=== PATIENT | male | born 1965 | race Caucasian/White ===

== ENCOUNTER 2022-02-11 22:37 | Inpatient (IN) | payer OTHER ==
[~2022-02-11] VITALS: Ht 170.2 cm; Wt 79.5 kg
[2022-02-12 01:06] VITALS: BP 142/61
[2022-02-12] MEDS ORDERED: VALS40TA2 PO (03:10)
[2022-02-12] MEDS ORDERED: METF-370 PO (03:10)
[2022-02-12] MEDS ORDERED: ALBU108A14 IN (03:10)
[2022-02-12] MEDS ORDERED: AMLO-489 PO (03:10)
[2022-02-12] MEDS ORDERED: METO-159 PO (03:10)
[2022-02-12] MEDS ORDERED: ATOR40TA52 PO (03:10)
[2022-02-12] MEDS ORDERED: CHLO25TA2 PO (03:10)
[2022-02-12] MEDS ORDERED: NITROGLYCERIN 0.4 MG SL TAB SL PRN (04:30)
[2022-02-12] MEDS ORDERED: MORPHINE SULFATE INJ 2 MG/ml SYRG IV PRN (04:30)
[2022-02-12 05:00] VITALS: BP 151/82
[2022-02-12] MEDS ORDERED: TEMAZEPAM 15 MG CAP PO PRN (05:00)
[2022-02-12] MEDS ORDERED: ACETAMINOPHEN 325 MG TAB PO PRN (05:00)
[2022-02-12] MEDS ORDERED: HYDROcodone-ACET 5/325MG TAB PO PRN (05:00)
[2022-02-12] MEDS ORDERED: ONDANSETRON HCL 4 MG/2 ML VIAL IV PRN (05:00)
[2022-02-12] MEDS ORDERED: DEXTROSE (50%) 50ML SYRG IV PRN (05:00)
[2022-02-12] MEDS: ACCU-CHEK COMFORT CURVE STRIP VI SCH ×4 (06:28→21:40)
[2022-02-12] MEDS: InsuLIN REG 1unit/0.01ml Soln (100units/ml) SC SCH ×4 (06:30→21:52)
[2022-02-12 09:19] LABS: Basophils # (auto) 0 10 ^3/uL (0-0.2); Basophils % (auto) 0.2 % (0.0-2.0); Eosinophils # (auto) 0 10 ^3/uL (0-0.8); Hematocrit 43.2 % (41.0-53.0); Hemoglobin 14.6 g/dL (13.5-17.5); Lymphocytes # (auto) 0.7 10 ^3/uL (0.4-5.4); Lymphocytes % (auto) 6.9 % (10.0-50.0); Mean Corpuscular Hemoglobin 31.7 pg (28.0-32.0); Mean Corpuscular Hgb Conc. 33.7 g/dL (32.0-36.0); Mean Corpuscular Volume 93.8 fL (80.0-100.0); Monocytes # (auto) 0.8 10 ^3/uL (0-1.3); Monocytes % (auto) 8.2 % (0.0-12.0); Neutrophils # (auto) 8.7 10 ^3/uL (1.6-8.6); Neutrophils % (auto) 84.7 % (37.0-80.0); White Blood Cell 10.3 10^3/uL (4.4-10.8)
[2022-02-12 09:23] VITALS: BP 138/84
[2022-02-12] MEDS: cefTRIAXone 1GM/50ML D5W 50 ML IV SCH (09:38)
[2022-02-12 09:40] LABS: Potassium 3.4 mmol/L (3.5-5.1)
[2022-02-12 09:41] VITALS: BP 138/84
[2022-02-12 09:48] LABS: Albumin 2.6 g/dL (3.4-5.0); BUN/Creatinine Ratio 23.4; Bilirubin, Total 0.4 mg/dL (0.2-1.0); Calcium 8.7 mg/dL (8.5-10.1); Total Protein 7.4 g/dL (6.4-8.2)
[2022-02-12 09:57] LABS: Phosphorus 2.1 mg/dL (2.5-4.90)
[2022-02-12] MEDS ORDERED: PANTOPRAZOLE 40 MG TAB PO SCH (10:00)
[2022-02-12] MEDS: AZITHROMYCIN 500MG/ 250ML 250 ML IV SCH (12:05)
[2022-02-12] MEDS: VALSARTAN 80 MG TAB PO SCH (12:06)
[2022-02-12] MEDS: amLODIPine BESYLATE 5 MG TAB PO SCH (12:06)
[2022-02-12] MEDS: METOPROLOL SUCCINATE XL 50 MG TAB PO SCH (12:06)
[2022-02-12] MEDS: ENOXAPARIN SOD 40 MG/0.4 ML SYRINGE SC SCH (12:07)
[2022-02-12 14:28] LABS: Lactic Acid w/Reflex 2.6 mmol/L (0.4-2.0)
[2022-02-12] MEDS ORDERED: SODIUM CHLORIDE 0.9% 1,000 ML IV ONE (15:15)
[2022-02-12] MEDS ORDERED: ERGOCALCIFEROL 50,000 UNIT(1.25MG) CAP PO SCH (16:00)
[2022-02-12 17:19] VITALS: BP 134/75
[2022-02-12] MEDS: IPRATROPIUM BROM 0.5 MG/2.5ML INH SOL NEB SCH (18:30)
[2022-02-12] MEDS: ALBUTEROL SULF 2.5 MG/0.5ML(0.5%) NEB SOLN NEB PRN (18:30)
[2022-02-12 20:57] LABS: Urine Bacteria NONE SEEN /hpf (None Seen); Urine Blood Negative /uL (Negative); Urine Specific Gravity 1.026 (1.001-1.035); Urine WBC 1 /hpf (0 - 3)
[2022-02-12] MEDS: ATORVASTATIN 20 MG TAB PO SCH (21:39)
[2022-02-12] MEDS: INSULIN LANTUS (GLARGINE) 1 /0.01ml (100units/ml) SC SCH (21:53)
[2022-02-12 22:00] VITALS: BP 128/89
[2022-02-13] MEDS: ALBUTEROL SULF 2.5 MG/0.5ML(0.5%) NEB SOLN NEB PRN ×2 (00:06→17:50)
[2022-02-13] MEDS: IPRATROPIUM BROM 0.5 MG/2.5ML INH SOL NEB SCH ×4 (00:06→17:50)
[2022-02-13 05:00] VITALS: BP 140/74
[2022-02-13] MEDS: ACCU-CHEK COMFORT CURVE STRIP VI SCH ×4 (05:48→21:44)
[2022-02-13 05:58] LABS: Basophils # (auto) 0.1 10 ^3/uL (0-0.2); Basophils % (auto) 0.6 % (0.0-2.0); Eosinophils # (auto) 0 10 ^3/uL (0-0.8); Eosinophils % (auto) 0.3 % (0.0-7.0); Hematocrit 41.5 % (41.0-53.0); Hemoglobin 14.1 g/dL (13.5-17.5); Lymphocytes # (auto) 1.4 10 ^3/uL (0.4-5.4); Lymphocytes % (auto) 13.8 % (10.0-50.0); Mean Corpuscular Hemoglobin 32.1 pg (28.0-32.0); Mean Corpuscular Volume 94.4 fL (80.0-100.0); Monocytes # (auto) 0.8 10 ^3/uL (0-1.3); Monocytes % (auto) 8.1 % (0.0-12.0); Neutrophils # (auto) 8.1 10 ^3/uL (1.6-8.6); Neutrophils % (auto) 77.2 % (37.0-80.0); Red Blood Cells 4.39 10^6/uL (4.5-5.90); Red Cell Distribution Width 13.7 % (11.8-14.3); White Blood Cell 10.4 10^3/uL (4.4-10.8)
[2022-02-13] MEDS: InsuLIN REG 1unit/0.01ml Soln (100units/ml) SC SCH ×4 (06:05→21:50)
[2022-02-13] MEDS: INSULIN LANTUS (GLARGINE) 1 /0.01ml (100units/ml) SC SCH ×2 (06:06→21:49)
[2022-02-13 06:19] LABS: Albumin 2.4 g/dL (3.4-5.0); Calcium 8.4 mg/dL (8.5-10.1); Potassium 3.7 mmol/L (3.5-5.1)
[2022-02-13 06:22] LABS: BUN/Creatinine Ratio 22.5; Phosphorus 2.9 mg/dL (2.5-4.90)
[2022-02-13 08:00] VITALS: BP 128/80
[2022-02-13] MEDS: cefTRIAXone 1GM/50ML D5W 50 ML IV SCH (09:00)
[2022-02-13] MEDS: VALSARTAN 80 MG TAB PO SCH (10:00)
[2022-02-13] MEDS: METOPROLOL SUCCINATE XL 50 MG TAB PO SCH (10:00)
[2022-02-13] MEDS: AZITHROMYCIN 500MG/ 250ML 250 ML IV SCH (10:18)
[2022-02-13] MEDS: amLODIPine BESYLATE 5 MG TAB PO SCH (10:20)
[2022-02-13] MEDS: ENOXAPARIN SOD 40 MG/0.4 ML SYRINGE SC SCH (10:22)
[2022-02-13 12:00] VITALS: BP 136/86
[2022-02-13 16:00] VITALS: BP 147/76
[2022-02-13] MEDS: ATORVASTATIN 20 MG TAB PO SCH (21:44)
[2022-02-13] MEDS: guaiFENesin 200 MG/10 ML UD GT PRN (22:02)
[2022-02-13 22:45] VITALS: BP 129/75
[2022-02-14 05:09] VITALS: BP 145/95
[2022-02-14] MEDS: guaiFENesin 200 MG/10 ML UD GT PRN ×2 (06:14→17:25)
[2022-02-14] MEDS: INSULIN LANTUS (GLARGINE) 1 /0.01ml (100units/ml) SC SCH ×2 (06:24→21:54)
[2022-02-14] MEDS: ACCU-CHEK COMFORT CURVE STRIP VI SCH ×4 (06:24→21:54)
[2022-02-14] MEDS: InsuLIN REG 1unit/0.01ml Soln (100units/ml) SC SCH ×4 (06:26→21:56)
[2022-02-14 09:00] VITALS: BP 135/84
[2022-02-14] MEDS: cefTRIAXone 1GM/50ML D5W 50 ML IV SCH (09:21)
[2022-02-14] MEDS: VALSARTAN 80 MG TAB PO SCH (09:26)
[2022-02-14] MEDS: amLODIPine BESYLATE 5 MG TAB PO SCH (09:29)
[2022-02-14] MEDS: ENOXAPARIN SOD 40 MG/0.4 ML SYRINGE SC SCH (09:29)
[2022-02-14] MEDS: METOPROLOL SUCCINATE XL 50 MG TAB PO SCH (09:30)
[2022-02-14] MEDS: AZITHROMYCIN 500MG/ 250ML 250 ML IV SCH (10:10)
[2022-02-14 13:00] VITALS: BP 150/67
[2022-02-14] MEDS ORDERED: EMPA1TAB3 PO (16:01)
[2022-02-14] MEDS ORDERED: AZIT250T8 PO (16:01)
[2022-02-14] MEDS ORDERED: ERGO1CAP23 PO (16:01)
[2022-02-14] MEDS: IPRATROPIUM BROM 0.5 MG/2.5ML INH SOL NEB SCH ×4 (16:50→23:54)
[2022-02-14 17:00] VITALS: BP 139/70
[2022-02-14] MEDS: ALBUTEROL SULF 2.5 MG/0.5ML(0.5%) NEB SOLN NEB PRN ×3 (18:06→23:54)
[2022-02-14 20:36] VITALS: BP 139/70
[2022-02-14] MEDS: ATORVASTATIN 20 MG TAB PO SCH (21:34)
[2022-02-14 22:00] VITALS: BP 131/76
[2022-02-14] MEDS: guaiFENesin 200 MG/10 ML UD PO PRN (22:59)
[2022-02-15 05:00] VITALS: BP 139/97
[2022-02-15] MEDS: IPRATROPIUM BROM 0.5 MG/2.5ML INH SOL NEB SCH ×2 (06:08→12:06)
[2022-02-15] MEDS: ALBUTEROL SULF 2.5 MG/0.5ML(0.5%) NEB SOLN NEB PRN ×2 (06:08→12:06)
[2022-02-15] MEDS: ACCU-CHEK COMFORT CURVE STRIP VI SCH ×2 (06:58→11:47)
[2022-02-15] MEDS: INSULIN LANTUS (GLARGINE) 1 /0.01ml (100units/ml) SC SCH (07:00)
[2022-02-15] MEDS: InsuLIN REG 1unit/0.01ml Soln (100units/ml) SC SCH ×2 (07:04→11:48)
[2022-02-15] MEDS: cefTRIAXone 1GM/50ML D5W 50 ML IV SCH (08:48)
[2022-02-15] MEDS: VALSARTAN 80 MG TAB PO SCH (10:00)
[2022-02-15] MEDS: AZITHROMYCIN 500MG/ 250ML 250 ML IV SCH (10:16)
[2022-02-15] MEDS: METOPROLOL SUCCINATE XL 50 MG TAB PO SCH (10:17)
[2022-02-15] MEDS: amLODIPine BESYLATE 5 MG TAB PO SCH (10:17)
[2022-02-15] MEDS: ENOXAPARIN SOD 40 MG/0.4 ML SYRINGE SC SCH (10:17)
[2022-02-15] MEDS: guaiFENesin 200 MG/10 ML UD PO PRN (10:18)
== END 2022-02-15 12:59 | disposition home or self-care (01) | DRG 871 ==
LOC: TELE-CENTR 23:59
PROVIDERS: ADMIT Internal Medicine; ATTEND Internal Medicine
DX: A41.9 Sepsis, unspecified organism (principal); J18.0 Bronchopneumonia, unspecified organism; E87.2 Acidosis; E11.9 Type 2 diabetes mellitus without complications; E55.9 Vitamin D deficiency, unspecified; E78.5 Hyperlipidemia, unspecified; I10 Essential (primary) hypertension; R91.1 Solitary pulmonary nodule; Z79.84 Long term (current) use of oral hypoglycemic drugs
CPT/HCPCS: 36415; 71045; 80048; 80053; 80069; 81001; 82306; 82962; 83036; 83605; 84100; 84443; 84484; 85025; 87070; 87081; 87205; 94640; G0378; J0696; J1815

== ENCOUNTER 2023-04-29 17:29 | Inpatient (IN) | payer OTHER ==
[~2023-04-29] VITALS: Ht 182.9 cm; Wt 69.0 kg
[~2023-04-29 17:29] MED LIST: ALBU108A14 IN; AMLO1TAB22 PO; ATOR40TA52 PO; AZIT-81 PO; CHLO25TA2 PO; EMPA1TAB3 PO; ERGO1CAP23 PO; METF-370 PO; METO-159 PO; VALS40TA2 PO
[2023-04-29 23:01] VITALS: BP 143/84; PULSE 115; RESP 20; TEMP 98.2; O2SAT 93
[2023-04-30] VITALS (13 sets, daily range): BP systolic 130–178; BP diastolic 73–86; PULSE 76–115; RESP 18–20; TEMP 97.5–98.4; O2SAT 93–99
[2023-04-30] MEDS ORDERED: ASPI-325 PO (01:34)
[2023-04-30] MEDS ORDERED: METO-289 PO (01:34)
[2023-04-30] MEDS ORDERED: VALS1TAB58 PO (01:34)
[2023-04-30] MEDS ORDERED: SERT-206 PO (01:34)
[2023-04-30] MEDS ORDERED: AMLO1TAB23 PO (01:34)
[2023-04-30] MEDS ORDERED: ROSU1TAB14 PO (01:34)
[2023-04-30 02:05] LABS: Basophils # (auto) 0 10 ^3/uL (0-0.2); Basophils % (auto) 0.3 % (0.0-2.0); Eosinophils # (auto) 0 10 ^3/uL (0-0.8); Hematocrit 33.9 % (41.0-53.0); Hemoglobin 11.1 g/dL (13.5-17.5); Lymphocytes # (auto) 0.9 10 ^3/uL (0.4-5.4); Lymphocytes % (auto) 7.6 % (10.0-50.0); Mean Corpuscular Hgb Conc. 32.8 g/dL (32.0-36.0); Mean Corpuscular Volume 94.5 fL (80.0-100.0); Monocytes % (auto) 8.7 % (0.0-12.0); Neutrophils # (auto) 9.7 10 ^3/uL (1.6-8.6); Neutrophils % (auto) 83.4 % (37.0-80.0); Red Blood Cells 3.59 10^6/uL (4.5-5.90); Red Cell Distribution Width 15.2 % (11.8-14.3); White Blood Cell 11.6 10^3/uL (4.4-10.8)
[2023-04-30 02:18] LABS: Albumin 3.1 g/dL (3.4-5.0); BUN/Creatinine Ratio 32.3 (10.0-20.0); Calcium 11.6 mg/dL (8.5-10.1); Potassium 3.9 mmol/L (3.5-5.1)
[2023-04-30 02:21] LABS: Bilirubin, Total 0.3 mg/dL (0.2-1.0); Total Protein 9.1 g/dL (6.4-8.2)
[2023-04-30] MEDS ORDERED: MORPHINE SULFATE INJ 2 MG/ml SYRG IV PRN (02:30)
[2023-04-30] MEDS ORDERED: DEXTROSE (50%) 50ML SYRG IV PRN (02:30)
[2023-04-30] MEDS ORDERED: NITROGLYCERIN 0.4 MG SL TAB SL PRN (02:30)
[2023-04-30] MEDS ORDERED: ONDANSETRON HCL 4 MG/2 ML VIAL IV PRN (02:30)
[2023-04-30] MEDS ORDERED: ACETAMINOPHEN 325 MG TAB PO PRN (02:30)
[2023-04-30] MEDS: MORPHINE SULFATE INJ 2 MG/ml SYRG IV PRN ×2 (05:10→10:56)
[2023-04-30] MEDS: ACCU-CHEK COMFORT CURVE STRIP VI SCH ×4 (05:54→21:25)
[2023-04-30] MEDS: InsuLIN REG 1unit/0.01ml Soln (100units/ml) SC SCH ×4 (05:57→21:27)
[2023-04-30] MEDS: METOPROLOL SUCCINATE XL 50 MG TAB PO SCH (09:09)
[2023-04-30] MEDS: PANTOPRAZOLE 40 MG TAB PO SCH (09:09)
[2023-04-30] MEDS: ASPirin 81 mg TAB PO SCH (09:10)
[2023-04-30] MEDS: amLODIPine BESYLATE 5 MG TAB PO SCH (09:10)
[2023-04-30] MEDS: SERTRALINE HCL 50 MG TAB PO SCH (09:10)
[2023-04-30] MEDS: VALSARTAN 80 MG TAB PO SCH (09:13)
[2023-04-30] MEDS ORDERED: DOXYCYCLINE 100 MG TAB/CAP PO ONE (10:30)
[2023-04-30] MEDS ORDERED: cefTRIAXone 1GM/50ML D5W 50 ML IV ONE (10:30)
[2023-04-30] MEDS ORDERED: OPTISON 3ml Vial for INJ IV ONE (10:36)
[2023-04-30 11:45] LABS: INR 1.09 (0.9-1.15); Partial Thromboplastin Time 29.8 SEC (24.5-34.5); Prothrombin Time 11.4 sec (9.3-11.8)
[2023-04-30] MEDS: ALBUTEROL SULF 2.5 MG/0.5ML(0.5%) NEB SOLN NEB PRN ×2 (12:17→16:18)
[2023-04-30] MEDS ORDERED: ZOLEDRONIC ACID 4 MG in SODIUM CHL 0.9% 100 ML IV ONE (13:30)
[2023-04-30] MEDS ORDERED: MORPHINE SULF 30 mg ER tab PO ONE (13:45)
[2023-04-30] MEDS ORDERED: HYDROcodone-ACET 5/325MG TAB PO PRN (13:45)
[2023-04-30 16:30] LABS: Urine Bacteria NONE SEEN /hpf (None Seen); Urine Blood Negative /uL (Negative); Urine Clarity Clear (Clear); Urine Color Colorless (Yellow); Urine Protein, UAD 1+ (Negative); Urine Specific Gravity 1.022 (1.001-1.035); Urine Urobilinogen Normal (Negative); Urine WBC <1 /hpf (0 - 3); Urine pH 5.5 (5.0-8.0)
[2023-04-30] MEDS: ATORVASTATIN 20 MG TAB PO SCH (21:25)
[2023-04-30] MEDS: DOXYCYCLINE 100 MG TAB/CAP PO SCH (21:25)
[2023-05-01] VITALS (13 sets, daily range): BP systolic 127–145; BP diastolic 74–80; PULSE 89–136; RESP 19–22; TEMP 98.1–98.5; O2SAT 91–99
[2023-05-01] MEDS: MORPHINE SULFATE INJ 2 MG/ml SYRG IV PRN ×2 (04:03→11:49)
[2023-05-01 05:03] LABS: Basophils # (auto) 0.1 10 ^3/uL (0-0.2); Basophils % (auto) 0.7 % (0.0-2.0); Eosinophils # (auto) 0.2 10 ^3/uL (0-0.8); Eosinophils % (auto) 1.8 % (0.0-7.0); Hematocrit 34.3 % (41.0-53.0); Hemoglobin 11.4 g/dL (13.5-17.5); Lymphocytes # (auto) 1.3 10 ^3/uL (0.4-5.4); Lymphocytes % (auto) 11.9 % (10.0-50.0); Mean Corpuscular Hemoglobin 31.6 pg (28.0-32.0); Mean Corpuscular Hgb Conc. 33.3 g/dL (32.0-36.0); Monocytes # (auto) 0.9 10 ^3/uL (0-1.3); Neutrophils # (auto) 8.7 10 ^3/uL (1.6-8.6); Neutrophils % (auto) 77.6 % (37.0-80.0); Nucleated Red Blood Cells % 0.2 %; Red Blood Cells 3.61 10^6/uL (4.5-5.90); Red Cell Distribution Width 15.1 % (11.8-14.3); White Blood Cell 11.2 10^3/uL (4.4-10.8)
[2023-05-01 05:16] LABS: Albumin 3.1 g/dL (3.4-5.0); Calcium 10.8 mg/dL (8.5-10.1); Magnesium 2.4 mg/dL (1.6-2.6); Potassium 3.6 mmol/L (3.5-5.1)
[2023-05-01 05:19] LABS: BUN/Creatinine Ratio 38.7 (10.0-20.0); Bilirubin, Total 0.3 mg/dL (0.2-1.0); Total Protein 9.1 g/dL (6.4-8.2)
[2023-05-01] MEDS: ACCU-CHEK COMFORT CURVE STRIP VI SCH ×4 (06:41→21:27)
[2023-05-01] MEDS: InsuLIN REG 1unit/0.01ml Soln (100units/ml) SC SCH ×4 (06:42→21:26)
[2023-05-01] MEDS: ALBUTEROL SULF 2.5 MG/0.5ML(0.5%) NEB SOLN NEB PRN ×4 (06:55→23:58)
[2023-05-01 07:07] LABS: Immunoglobulin A 3344 mg/dL (90-386); Immunoglobulin G, Serum 289 mg/dL (603-1613); Immunoglobulin M 15 mg/dL (20-172)
[2023-05-01 08:06] LABS: AFP Serum Tumor Marker 4.1 ng/mL (0.0-8.4)
[2023-05-01] MEDS: VALSARTAN 80 MG TAB PO SCH (08:43)
[2023-05-01] MEDS: METOPROLOL SUCCINATE XL 50 MG TAB PO SCH (08:44)
[2023-05-01] MEDS: DOXYCYCLINE 100 MG TAB/CAP PO SCH ×2 (08:44→21:21)
[2023-05-01] MEDS: amLODIPine BESYLATE 5 MG TAB PO SCH (08:45)
[2023-05-01] MEDS: SERTRALINE HCL 50 MG TAB PO SCH (08:45)
[2023-05-01] MEDS: PANTOPRAZOLE 40 MG TAB PO SCH (08:45)
[2023-05-01] MEDS: ASPirin 81 mg TAB PO SCH (08:46)
[2023-05-01] MEDS ORDERED: LIDOCAINE 2%HCL (LOCAL ANESTH.) INJ 10ml MDV ONE (09:37)
[2023-05-01] MEDS: cefTRIAXone 1GM/50ML D5W 50 ML IV SCH (10:07)
[2023-05-01 12:07] LABS: Albumin 3.3 g/dL (2.9-4.4); Alpha-1-Globulin 0.4 g/dL (0.0-0.4); Gamma Globulin 3.2 g/dL (0.4-1.8); Globulin Total 5.5 g/dL (2.2-3.9); Protein Total Serum 8.8 g/dL (6.0-8.5)
[2023-05-01] MEDS ORDERED: MIDAZOLAM HCL 2MG/2ML 2ml VIAL (1mg/ml) IV ONE (12:30)
[2023-05-01] MEDS ORDERED: fentaNYL CITRATE 100 MCG/2 ML VL IV ONE (12:30)
[2023-05-01 14:07] LABS: PSA Free 0.23 ng/mL; Prostate Specific Antigen 0.7 ng/mL (0.0-4.0)
[2023-05-01] MEDS: MORPHINE SULF 30 mg ER tab PO SCH ×2 (15:28→21:21)
[2023-05-01] MEDS: ATORVASTATIN 20 MG TAB PO SCH (21:21)
[2023-05-02] VITALS (12 sets, daily range): BP systolic 114–149; BP diastolic 67–86; PULSE 71–123; RESP 14–21; TEMP 36.6; O2SAT 92–100
[2023-05-02] MEDS: InsuLIN REG 1unit/0.01ml Soln (100units/ml) SC SCH ×4 (06:08→22:00)
[2023-05-02] MEDS: ACCU-CHEK COMFORT CURVE STRIP VI SCH ×4 (06:09→22:00)
[2023-05-02] MEDS: HYDROcodone-ACET 5/325MG TAB PO PRN ×2 (06:15→17:51)
[2023-05-02] MEDS: VALSARTAN 80 MG TAB PO SCH (10:00)
[2023-05-02] MEDS: amLODIPine BESYLATE 5 MG TAB PO SCH (10:00)
[2023-05-02] MEDS: cefTRIAXone 1GM/50ML D5W 50 ML IV SCH (10:07)
[2023-05-02] MEDS: ASPirin 81 mg TAB PO SCH (10:07)
[2023-05-02] MEDS: MORPHINE SULF 30 mg ER tab PO SCH ×2 (10:07→22:52)
[2023-05-02] MEDS: DOXYCYCLINE 100 MG TAB/CAP PO SCH ×2 (10:07→22:55)
[2023-05-02] MEDS: PANTOPRAZOLE 40 MG TAB PO SCH (10:08)
[2023-05-02] MEDS: METOPROLOL SUCCINATE XL 50 MG TAB PO SCH (10:08)
[2023-05-02] MEDS: SERTRALINE HCL 50 MG TAB PO SCH (10:08)
[2023-05-02] MEDS: ALBUTEROL SULF 2.5 MG/0.5ML(0.5%) NEB SOLN NEB PRN ×2 (10:43→22:16)
[2023-05-02] MEDS ORDERED: FUROSEMIDE 20 MG/2 ML VIAL IV ONE (11:30)
[2023-05-02 16:06] LABS: Beta-2-Microglobulin 5.5 mg/L (0.6-2.4)
[2023-05-02] MEDS: ATORVASTATIN 20 MG TAB PO SCH (22:00)
[2023-05-03] VITALS (12 sets, daily range): BP systolic 114–129; BP diastolic 65–71; PULSE 91–114; RESP 14–20; TEMP 97.9–98.5; O2SAT 91–100
[2023-05-03] MEDS: InsuLIN REG 1unit/0.01ml Soln (100units/ml) SC SCH ×4 (05:56→21:15)
[2023-05-03] MEDS: ACCU-CHEK COMFORT CURVE STRIP VI SCH ×4 (05:59→21:12)
[2023-05-03] MEDS ORDERED: ALBUTEROL SULF 2.5 MG/0.5ML(0.5%) NEB SOLN NEB PRN (09:30)
[2023-05-03] MEDS: cefTRIAXone 1GM/50ML D5W 50 ML IV SCH (09:35)
[2023-05-03] MEDS: ASPirin 81 mg TAB PO SCH (09:37)
[2023-05-03] MEDS: amLODIPine BESYLATE 5 MG TAB PO SCH (10:06)
[2023-05-03] MEDS: PANTOPRAZOLE 40 MG TAB PO SCH (10:07)
[2023-05-03] MEDS: METOPROLOL SUCCINATE XL 50 MG TAB PO SCH (10:07)
[2023-05-03] MEDS: DOXYCYCLINE 100 MG TAB/CAP PO SCH ×2 (10:07→21:11)
[2023-05-03] MEDS: MORPHINE SULF 30 mg ER tab PO SCH ×2 (10:07→21:12)
[2023-05-03] MEDS: SERTRALINE HCL 50 MG TAB PO SCH (10:08)
[2023-05-03] MEDS: VALSARTAN 80 MG TAB PO SCH (10:56)
[2023-05-03] MEDS ORDERED: ALBUTEROL MEDNEB 2.5 mg/3ml NEB NEB PRN (12:00)
[2023-05-03] MEDS: HYDROcodone-ACET 5/325MG TAB PO PRN (17:59)
[2023-05-03] MEDS: ALBUTEROL SULF 2.5 MG/0.5ML(0.5%) NEB SOLN NEB PRN (20:10)
[2023-05-03] MEDS: ATORVASTATIN 20 MG TAB PO SCH (21:12)
[2023-05-04] VITALS (11 sets, daily range): BP systolic 107–130; BP diastolic 59–71; PULSE 97–113; RESP 14–18; TEMP 98–99.7; O2SAT 90–100
[2023-05-04] MEDS: HYDROcodone-ACET 5/325MG TAB PO PRN ×3 (02:37→18:20)
[2023-05-04] MEDS: ACCU-CHEK COMFORT CURVE STRIP VI SCH ×4 (06:51→21:30)
[2023-05-04] MEDS: InsuLIN REG 1unit/0.01ml Soln (100units/ml) SC SCH ×4 (06:53→21:32)
[2023-05-04] MEDS: ALBUTEROL SULF 2.5 MG/0.5ML(0.5%) NEB SOLN NEB PRN ×2 (06:57→18:30)
[2023-05-04] MEDS ORDERED: ALBUTEROL SULF 2.5 MG/0.5ML(0.5%) NEB SOLN ONE (06:57)
[2023-05-04] MEDS: cefTRIAXone 1GM/50ML D5W 50 ML IV SCH (09:46)
[2023-05-04] MEDS: PANTOPRAZOLE 40 MG TAB PO SCH (11:15)
[2023-05-04] MEDS: SERTRALINE HCL 50 MG TAB PO SCH (11:15)
[2023-05-04] MEDS: DOXYCYCLINE 100 MG TAB/CAP PO SCH ×2 (11:15→21:27)
[2023-05-04] MEDS: METOPROLOL SUCCINATE XL 50 MG TAB PO SCH (11:15)
[2023-05-04] MEDS: ASPirin 81 mg TAB PO SCH (11:15)
[2023-05-04] MEDS: amLODIPine BESYLATE 5 MG TAB PO SCH (11:16)
[2023-05-04] MEDS: MORPHINE SULF 30 mg ER tab PO SCH ×2 (11:16→21:27)
[2023-05-04] MEDS: VALSARTAN 80 MG TAB PO SCH (11:20)
[2023-05-04] MEDS ORDERED: LACTULOSE 20Gm/30ML SOLN PO ONE (13:15)
[2023-05-04] MEDS: ATORVASTATIN 20 MG TAB PO SCH (22:00)
[2023-05-05] VITALS (10 sets, daily range): BP systolic 102–124; BP diastolic 62–69; PULSE 85–107; RESP 16–22; TEMP 97.5–98.5; O2SAT 90–100
[2023-05-05] MEDS: HYDROcodone-ACET 5/325MG TAB PO PRN ×3 (00:06→18:28)
[2023-05-05] MEDS: ACCU-CHEK COMFORT CURVE STRIP VI SCH ×4 (06:08→21:39)
[2023-05-05] MEDS: InsuLIN REG 1unit/0.01ml Soln (100units/ml) SC SCH ×4 (06:11→21:41)
[2023-05-05] MEDS: ALBUTEROL SULF 2.5 MG/0.5ML(0.5%) NEB SOLN NEB PRN ×2 (06:31→21:12)
[2023-05-05] MEDS: cefTRIAXone 1GM/50ML D5W 50 ML IV SCH (09:40)
[2023-05-05] MEDS: PANTOPRAZOLE 40 MG TAB PO SCH (09:40)
[2023-05-05] MEDS: MORPHINE SULF 30 mg ER tab PO SCH ×2 (09:41→21:39)
[2023-05-05] MEDS: ASPirin 81 mg TAB PO SCH (09:41)
[2023-05-05] MEDS: METOPROLOL SUCCINATE XL 50 MG TAB PO SCH (09:41)
[2023-05-05] MEDS: VALSARTAN 80 MG TAB PO SCH (09:41)
[2023-05-05] MEDS: SERTRALINE HCL 50 MG TAB PO SCH (09:41)
[2023-05-05] MEDS: amLODIPine BESYLATE 5 MG TAB PO SCH (09:42)
[2023-05-05] MEDS: DOXYCYCLINE 100 MG TAB/CAP PO SCH ×2 (09:42→21:39)
[2023-05-05] MEDS: ATORVASTATIN 20 MG TAB PO SCH (21:03)
[2023-05-05] MEDS: DOCUSATE SOD 100 MG CAP PO SCH (21:39)
[2023-05-06] VITALS (14 sets, daily range): BP systolic 106–121; BP diastolic 57–69; PULSE 79–107; RESP 16–21; TEMP 97.2–98.3; O2SAT 91–99
[2023-05-06] MEDS: ALBUTEROL SULF 2.5 MG/0.5ML(0.5%) NEB SOLN NEB PRN ×3 (03:44→18:28)
[2023-05-06] MEDS: HYDROcodone-ACET 5/325MG TAB PO PRN ×2 (04:47→16:04)
[2023-05-06] MEDS: ACCU-CHEK COMFORT CURVE STRIP VI SCH ×4 (06:26→22:43)
[2023-05-06] MEDS: InsuLIN REG 1unit/0.01ml Soln (100units/ml) SC SCH ×4 (06:26→22:47)
[2023-05-06] MEDS ORDERED: HYDROmorphone HCL 2 MG/ML VL/or syr IV ONE (08:00)
[2023-05-06] MEDS: MORPHINE SULF 30 mg ER tab PO SCH ×2 (10:00→22:32)
[2023-05-06] MEDS: VALSARTAN 80 MG TAB PO SCH (10:00)
[2023-05-06] MEDS: DOCUSATE SOD 100 MG CAP PO SCH ×2 (10:03→22:31)
[2023-05-06] MEDS: SERTRALINE HCL 50 MG TAB PO SCH (10:03)
[2023-05-06] MEDS: cefTRIAXone 1GM/50ML D5W 50 ML IV SCH (10:03)
[2023-05-06] MEDS: PANTOPRAZOLE 40 MG TAB PO SCH (10:03)
[2023-05-06] MEDS: DOXYCYCLINE 100 MG TAB/CAP PO SCH ×2 (10:04→22:33)
[2023-05-06] MEDS: METOPROLOL SUCCINATE XL 50 MG TAB PO SCH (10:04)
[2023-05-06] MEDS: amLODIPine BESYLATE 5 MG TAB PO SCH (10:04)
[2023-05-06] MEDS: ASPirin 81 mg TAB PO SCH (10:07)
[2023-05-06 11:55] LABS: Base Excess -4.1 mmol/L (-2.0-2.0)
[2023-05-06] MEDS ORDERED: ALBUTEROL SULF 2.5 MG/0.5ML(0.5%) NEB SOLN ONE (12:34)
[2023-05-06] MEDS: ATORVASTATIN 20 MG TAB PO SCH (22:31)
[2023-05-07] VITALS (48 sets, daily range): BP systolic 76–134; BP diastolic 39–66; PULSE 83–122; RESP 16–50; TEMP 97.9–99.6; O2SAT 86–100
[2023-05-07] MEDS: ALBUTEROL SULF 2.5 MG/0.5ML(0.5%) NEB SOLN NEB PRN (03:56)
[2023-05-07 05:15] LABS: Base Excess -13.4 mmol/L (-2.0-2.0)
[2023-05-07] MEDS: InsuLIN REG 1unit/0.01ml Soln (100units/ml) SC SCH ×4 (06:49→22:24)
[2023-05-07] MEDS: ACCU-CHEK COMFORT CURVE STRIP VI SCH ×4 (06:49→22:23)
[2023-05-07] MEDS: cefTRIAXone 1GM/50ML D5W 50 ML IV SCH (08:51)
[2023-05-07 09:01] LABS: Base Excess -11.2 mmol/L (-2.0-2.0)
[2023-05-07 09:15] LABS: Basophils # (auto) 0 10 ^3/uL (0-0.2); Basophils % (auto) 0.3 % (0.0-2.0); Eosinophils # (auto) 0.1 10 ^3/uL (0-0.8); Eosinophils % (auto) 0.5 % (0.0-7.0); Hematocrit 32.8 % (41.0-53.0); Hemoglobin 10.5 g/dL (13.5-17.5); Lymphocytes # (auto) 0.7 10 ^3/uL (0.4-5.4); Lymphocytes % (auto) 6.9 % (10.0-50.0); Mean Corpuscular Hemoglobin 30.7 pg (28.0-32.0); Mean Corpuscular Hgb Conc. 31.9 g/dL (32.0-36.0); Mean Corpuscular Volume 96.1 fL (80.0-100.0); Monocytes # (auto) 1.6 10 ^3/uL (0-1.3); Monocytes % (auto) 15.6 % (0.0-12.0); Neutrophils # (auto) 7.9 10 ^3/uL (1.6-8.6); Neutrophils % (auto) 76.7 % (37.0-80.0); Nucleated Red Blood Cells % 0.1 %; Red Blood Cells 3.41 10^6/uL (4.5-5.90); Red Cell Distribution Width 14.9 % (11.8-14.3); White Blood Cell 10.3 10^3/uL (4.4-10.8)
[2023-05-07] MEDS: SERTRALINE HCL 50 MG TAB PO SCH (10:00)
[2023-05-07] MEDS: PANTOPRAZOLE 40 MG TAB PO SCH (10:00)
[2023-05-07] MEDS: ASPirin 81 mg TAB PO SCH (10:00)
[2023-05-07] MEDS: VALSARTAN 80 MG TAB PO SCH (10:00)
[2023-05-07] MEDS: amLODIPine BESYLATE 5 MG TAB PO SCH (10:00)
[2023-05-07] MEDS: DOXYCYCLINE 100 MG TAB/CAP PO SCH ×2 (10:00→22:23)
[2023-05-07] MEDS: METOPROLOL SUCCINATE XL 50 MG TAB PO SCH (10:00)
[2023-05-07] MEDS: DOCUSATE SOD 100 MG CAP PO SCH ×2 (10:00→22:00)
[2023-05-07 12:44] LABS: BUN/Creatinine Ratio 18.9 (10.0-20.0)
[2023-05-07 12:45] LABS: Albumin 2.6 g/dL (3.4-5.0); Bilirubin, Total 0.3 mg/dL (0.2-1.0); Calcium 6.4 mg/dL (8.5-10.1); Total Protein 8.9 g/dL (6.4-8.2)
[2023-05-07 12:47] LABS: Potassium 5.7 mmol/L (3.5-5.1)
[2023-05-07 13:13] LABS: Base Excess -10.3 mmol/L (-2.0-2.0)
[2023-05-07] MEDS ORDERED: SODIUM CHLORIDE 0.9% 1,000 ML IV SCH (13:15)
[2023-05-07] MEDS: SODIUM BICARBONATE 50ML VIAL 50 ML in SOD CHL 0.45% 1,000 ML IV SCH (13:45)
[2023-05-07] MEDS ORDERED: BUMETANIDE 2.5mg/10ml (0.25 mg/ml) INJ IV ONE (13:45)
[2023-05-07 14:17] LABS: Creatinine, Urine 88 mg/dL (30.0-125.0); Sodium Urine 12 mmol/L (40-220)
[2023-05-07 14:20] LABS: Protein, Urine 241.5 mg/dL (0.0-11.9); Urine Protein/Creatinine Ratio 2.81
[2023-05-07 14:24] LABS: Urine Bacteria NONE SEEN /hpf (None Seen); Urine Blood Negative /uL (Negative); Urine Clarity Clear (Clear); Urine Color Yellow (Yellow); Urine Protein, UAD 2+ (Negative); Urine Specific Gravity 1.016 (1.001-1.035); Urine Urobilinogen Normal (Negative); Urine WBC 1 /hpf (0 - 3); Urine pH 5.5 (5.0-8.0)
[2023-05-07] MEDS: ALBUMIN 25% 100 ML IV SCH ×2 (14:35→22:22)
[2023-05-07] MEDS: NOREPINEPHRINE 8 MG/250ML KIT 250 ML IV SCH ×2 (16:00→22:25)
[2023-05-07] MEDS ORDERED: ROCURONIUM 10MG/ML 10ML VIAL IV ONE (16:00)
[2023-05-07] MEDS: fentaNYL Drip 2500mCg/250mlNS 250 ML IV SCH (16:00)
[2023-05-07] MEDS: MIDAZOLAM DRIP 50 mg/50mL 50 ML IV SCH ×2 (16:00→22:25)
[2023-05-07] MEDS ORDERED: ETOMIDATE (2MG/ML) 20ML VIAL IV ONE (16:00)
[2023-05-07 16:23] LABS: INR 1.15 (0.9-1.15)
[2023-05-07 16:42] LABS: Base Excess -9.7 mmol/L (-2.0-2.0)
[2023-05-07 19:04] LABS: Base Excess -11.8 mmol/L (-2.0-2.0)
[2023-05-07] MEDS ORDERED: SODIUM BICARBONATE 8.4 % INJ 50ML VIAL IV ONE (19:15)
[2023-05-07] MEDS: PHENYLEPHRINE INJ 80 MG in SODIUM CHL 0.9% 242 ML IV SCH (19:15)
[2023-05-07] MEDS: ATORVASTATIN 20 MG TAB PO SCH (22:23)
[2023-05-08] VITALS (103 sets, daily range): BP systolic 86–132; BP diastolic 41–73; PULSE 85–117; RESP 20–26; TEMP 99.3–100.4; O2SAT 89–100
[2023-05-08] MEDS ORDERED: SODIUM BICARBONATE 8.4 % INJ 50ML VIAL IV ONE (01:01)
[2023-05-08] MEDS: SODIUM BICARBONATE 50ML VIAL 50 ML in SOD CHL 0.45% 1,000 ML IV SCH ×4 (02:01→21:54)
[2023-05-08] MEDS ORDERED: ACETAMINOPHEN 650 mg PER 20.3 mL UD GT PRN (02:30)
[2023-05-08 04:13] LABS: Hematocrit 27.8 % (41.0-53.0); Hemoglobin 9.4 g/dL (13.5-17.5); Mean Corpuscular Hemoglobin 31.1 pg (28.0-32.0); Mean Corpuscular Hgb Conc. 33.8 g/dL (32.0-36.0); Mean Corpuscular Volume 91.9 fL (80.0-100.0); Red Blood Cells 3.02 10^6/uL (4.5-5.90); Red Cell Distribution Width 14.7 % (11.8-14.3); White Blood Cell 6.7 10^3/uL (4.4-10.8)
[2023-05-08 04:22] LABS: Basophils % (manual) 0 (0.0-2.0); Blast Cells 0; Eosinophils % (manual) 0 (0-7); Metamyelocytes % 0; Myelocytes % 0; Promyelocytes % 0; Reactive Lymphocytes 0
[2023-05-08 04:26] LABS: BUN/Creatinine Ratio 17.4 (10.0-20.0); Magnesium 2.6 mg/dL (1.6-2.6); Phosphorus 4.8 mg/dL (2.5-4.90); Potassium 3.8 mmol/L (3.5-5.1)
[2023-05-08 04:42] LABS: Calcium 5.9 mg/dL (8.5-10.1)
[2023-05-08 04:52] LABS: Band Neutrophils % (manual) 2; Lymphocytes % (manual) 12 (10.0-50.0); Monocytes % (manual) 17 (0-12); Platelet Estimate Adequate
[2023-05-08] MEDS: ALBUMIN 25% 100 ML IV SCH (06:09)
[2023-05-08] MEDS: ACCU-CHEK COMFORT CURVE STRIP VI SCH ×4 (06:12→21:55)
[2023-05-08] MEDS: InsuLIN REG 1unit/0.01ml Soln (100units/ml) SC SCH ×4 (06:12→21:58)
[2023-05-08 08:48] LABS: Base Excess -4.2 mmol/L (-2.0-2.0)
[2023-05-08] MEDS: ALBUTEROL SULF 2.5 MG/0.5ML(0.5%) NEB SOLN NEB PRN (08:51)
[2023-05-08] MEDS: ASPirin 81 mg TAB PO SCH (09:22)
[2023-05-08] MEDS: cefTRIAXone 1GM/50ML D5W 50 ML IV SCH (09:22)
[2023-05-08] MEDS: SERTRALINE HCL 50 MG TAB PO SCH (09:22)
[2023-05-08] MEDS: DOXYCYCLINE 100 MG TAB/CAP PO SCH ×2 (09:23→21:54)
[2023-05-08] MEDS: DOCUSATE SOD 100 MG CAP PO SCH (09:23)
[2023-05-08] MEDS: PANTOPRAZOLE 40 MG TAB PO SCH (10:00)
[2023-05-08] MEDS: amLODIPine BESYLATE 5 MG TAB PO SCH (10:00)
[2023-05-08] MEDS: METOPROLOL SUCCINATE XL 50 MG TAB PO SCH (10:00)
[2023-05-08] MEDS ORDERED: FUROSEMIDE 40 MG/4 ML VIAL IV ONE (11:30)
[2023-05-08] MEDS: DOPamine 1600MCG/ML D5W 250 ML IV SCH (12:55)
[2023-05-08] MEDS ORDERED: PANTOPRAZOLE 40 MG/10 ML VIAL INJ IV ONE (13:00)
[2023-05-08] MEDS: CALCIUM ACETATE 667 MG CAP NG SCH ×2 (15:30→21:54)
[2023-05-08] MEDS: fentaNYL Drip 2500mCg/250mlNS 250 ML IV SCH ×2 (16:00→21:58)
[2023-05-08] MEDS: MIDAZOLAM DRIP 50 mg/50mL 50 ML IV SCH (17:17)
[2023-05-08] MEDS: PHENYLEPHRINE INJ 80 MG in SODIUM CHL 0.9% 242 ML IV SCH (19:15)
[2023-05-08] MEDS: NOREPINEPHRINE 8 MG/250ML KIT 250 ML IV SCH (21:54)
[2023-05-08] MEDS: ATORVASTATIN 20 MG TAB PO SCH (21:55)
[2023-05-09] VITALS (105 sets, daily range): BP systolic 75–146; BP diastolic 40–71; PULSE 79–119; RESP 19–22; TEMP 98.4–99.9; O2SAT 90–100
[2023-05-09] MEDS: MIDAZOLAM DRIP 50 mg/50mL 50 ML IV SCH ×3 (00:26→21:05)
[2023-05-09] MEDS: DOCUSATE ORAL LIQUID 100 MG/10 ML UD GT SCH ×3 (00:26→21:00)
[2023-05-09 04:52] LABS: Basophils # (auto) 0.1 10 ^3/uL (0-0.2); Basophils % (auto) 0.6 % (0.0-2.0); Eosinophils # (auto) 0.3 10 ^3/uL (0-0.8); Eosinophils % (auto) 3.4 % (0.0-7.0); Hematocrit 28.2 % (41.0-53.0); Hemoglobin 9.4 g/dL (13.5-17.5); Mean Corpuscular Hemoglobin 30.9 pg (28.0-32.0); Mean Corpuscular Hgb Conc. 33.3 g/dL (32.0-36.0); Mean Corpuscular Volume 92.8 fL (80.0-100.0); Monocytes # (auto) 1.2 10 ^3/uL (0-1.3); Monocytes % (auto) 12.6 % (0.0-12.0); Neutrophils # (auto) 7.2 10 ^3/uL (1.6-8.6); Neutrophils % (auto) 73.4 % (37.0-80.0); Red Blood Cells 3.04 10^6/uL (4.5-5.90); Red Cell Distribution Width 14.8 % (11.8-14.3); White Blood Cell 9.9 10^3/uL (4.4-10.8)
[2023-05-09] MEDS: NOREPINEPHRINE 8 MG/250ML KIT 250 ML IV SCH (04:52)
[2023-05-09 05:02] LABS: Albumin 2.5 g/dL (3.4-5.0); Magnesium 2.5 mg/dL (1.6-2.6); Potassium 4.4 mmol/L (3.5-5.1)
[2023-05-09 05:05] LABS: BUN/Creatinine Ratio 15.9 (10.0-20.0); Bilirubin, Total 0.3 mg/dL (0.2-1.0); Total Protein 7.2 g/dL (6.4-8.2)
[2023-05-09 05:11] LABS: Calcium 5.4 mg/dL (8.5-10.1)
[2023-05-09] MEDS: CALCIUM ACETATE 667 MG CAP NG SCH ×3 (06:15→21:00)
[2023-05-09] MEDS: ACCU-CHEK COMFORT CURVE STRIP VI SCH ×4 (06:16→21:00)
[2023-05-09] MEDS: InsuLIN REG 1unit/0.01ml Soln (100units/ml) SC SCH ×4 (06:17→21:09)
[2023-05-09 07:48] LABS: Base Excess -5.4 mmol/L (-2.0-2.0)
[2023-05-09] MEDS: SODIUM BICARBONATE 50ML VIAL 50 ML in SOD CHL 0.45% 1,000 ML IV SCH (09:30)
[2023-05-09] MEDS: METOPROLOL SUCCINATE XL 50 MG TAB PO SCH (10:00)
[2023-05-09] MEDS: amLODIPine BESYLATE 5 MG TAB PO SCH (10:00)
[2023-05-09] MEDS: cefTRIAXone 1GM/50ML D5W 50 ML IV SCH (10:02)
[2023-05-09] MEDS: ENOXAPARIN SOD 30 MG/0.3 ML SYRINGE SC SCH (10:03)
[2023-05-09] MEDS: CALCIUM GLUC 1,000mg/50ml-NS 50 ML IV SCH ×3 (10:04→13:08)
[2023-05-09] MEDS: PANTOPRAZOLE 40 MG/10 ML VIAL INJ IV SCH (10:04)
[2023-05-09] MEDS: DOXYCYCLINE 100 MG TAB/CAP PO SCH ×2 (10:04→21:00)
[2023-05-09] MEDS: ASPirin 81 mg TAB PO SCH (10:05)
[2023-05-09] MEDS: SERTRALINE HCL 50 MG TAB PO SCH (10:05)
[2023-05-09] MEDS ORDERED: CATHFLO ACTIVASE (ALTEPLASE) 2 MG VIAL IV ONE (11:15)
[2023-05-09] MEDS: DOPamine 1600MCG/ML D5W 250 ML IV SCH (12:15)
[2023-05-09] MEDS ORDERED: SODIUM CHL 0.9% 1000 ML BAG XX ONE (12:30)
[2023-05-09] MEDS: BUMETANIDE INJECTION 12.5 MG in GIVE UN-DILUTED 0 ML IV SCH (13:09)
[2023-05-09] MEDS ORDERED: ALBUMIN 25% 100 ML IV ONE (15:15)
[2023-05-09] MEDS: ALBUTEROL SULF 2.5 MG/0.5ML(0.5%) NEB SOLN NEB PRN (18:15)
[2023-05-09] MEDS: PHENYLEPHRINE INJ 80 MG in SODIUM CHL 0.9% 242 ML IV SCH (19:15)
[2023-05-09] MEDS: ATORVASTATIN 20 MG TAB PO SCH (21:00)
[2023-05-09] MEDS ORDERED: EPOETIN ALFA-EPBX 10,000 UNIT/1ML VIAL SC ONE (21:00)
[2023-05-10] VITALS (104 sets, daily range): BP systolic 85–156; BP diastolic 40–76; PULSE 84–116; RESP 19–23; TEMP 91.8–99.7; O2SAT 88–100
[2023-05-10] MEDS: ALBUTEROL SULF 2.5 MG/0.5ML(0.5%) NEB SOLN NEB PRN (00:10)
[2023-05-10] MEDS: fentaNYL Drip 2500mCg/250mlNS 250 ML IV SCH ×3 (00:37→23:25)
[2023-05-10] MEDS: NOREPINEPHRINE 8 MG/250ML KIT 250 ML IV SCH ×2 (04:44→21:33)
[2023-05-10] MEDS: DOPamine 1600MCG/ML D5W 250 ML IV SCH (04:44)
[2023-05-10] MEDS: MIDAZOLAM DRIP 50 mg/50mL 50 ML IV SCH ×4 (04:49→21:37)
[2023-05-10] MEDS: BUMETANIDE INJECTION 12.5 MG in GIVE UN-DILUTED 0 ML IV SCH (05:05)
[2023-05-10 05:11] LABS: Basophils # (auto) 0.1 10 ^3/uL (0-0.2); Basophils % (auto) 0.7 % (0.0-2.0); Eosinophils # (auto) 0.1 10 ^3/uL (0-0.8); Eosinophils % (auto) 1.1 % (0.0-7.0); Hematocrit 28.7 % (41.0-53.0); Hemoglobin 9.6 g/dL (13.5-17.5); Lymphocytes # (auto) 0.6 10 ^3/uL (0.4-5.4); Lymphocytes % (auto) 5.7 % (10.0-50.0); Mean Corpuscular Hgb Conc. 33.6 g/dL (32.0-36.0); Mean Corpuscular Volume 92.4 fL (80.0-100.0); Monocytes # (auto) 1.1 10 ^3/uL (0-1.3); Monocytes % (auto) 10.3 % (0.0-12.0); Neutrophils % (auto) 82.2 % (37.0-80.0); Red Cell Distribution Width 14.8 % (11.8-14.3)
[2023-05-10 05:48] LABS: Potassium 4.2 mmol/L (3.5-5.1)
[2023-05-10 05:50] LABS: BUN/Creatinine Ratio 13.3 (10.0-20.0)
[2023-05-10] MEDS: CALCIUM ACETATE 667 MG CAP NG SCH ×3 (06:13→21:16)
[2023-05-10] MEDS: ACCU-CHEK COMFORT CURVE STRIP VI SCH ×4 (06:14→21:16)
[2023-05-10] MEDS: InsuLIN REG 1unit/0.01ml Soln (100units/ml) SC SCH ×4 (06:19→21:16)
[2023-05-10 06:56] LABS: Base Excess -5.9 mmol/L (-2.0-2.0)
[2023-05-10] MEDS: ENOXAPARIN SOD 30 MG/0.3 ML SYRINGE SC SCH (10:00)
[2023-05-10] MEDS: amLODIPine BESYLATE 5 MG TAB PO SCH (10:00)
[2023-05-10] MEDS: DOCUSATE ORAL LIQUID 100 MG/10 ML UD GT SCH ×2 (10:00→21:15)
[2023-05-10] MEDS: METOPROLOL SUCCINATE XL 50 MG TAB PO SCH (10:00)
[2023-05-10] MEDS: ASPirin 81 mg TAB PO SCH (10:00)
[2023-05-10] MEDS: SERTRALINE HCL 50 MG TAB PO SCH (10:00)
[2023-05-10] MEDS: PANTOPRAZOLE 40 MG/10 ML VIAL INJ IV SCH (10:08)
[2023-05-10] MEDS: cefTRIAXone 1GM/50ML D5W 50 ML IV SCH (10:08)
[2023-05-10] MEDS: DOXYCYCLINE 100 MG TAB/CAP PO SCH ×2 (10:08→21:16)
[2023-05-10] MEDS: PHENYLEPHRINE INJ 80 MG in SODIUM CHL 0.9% 242 ML IV SCH (10:09)
[2023-05-10] MEDS ORDERED: VANCOMYCIN PER PHARMACY 0 MG IV SCH (11:00)
[2023-05-10] MEDS ORDERED: VANCOMYCIN 1GM/250ML 250 ML IV ONE (11:30)
[2023-05-10] MEDS ORDERED: VANCOMYCIN 1,250 MG in D5W 5% 250 ML IV ONE (11:45)
[2023-05-10] MEDS: ATORVASTATIN 20 MG TAB PO SCH (21:16)
[2023-05-11] VITALS (107 sets, daily range): BP systolic 89–131; BP diastolic 41–69; PULSE 79–115; RESP 14–25; TEMP 96.1–99.7; O2SAT 90–100
[2023-05-11] MEDS: MIDAZOLAM DRIP 50 mg/50mL 50 ML IV SCH ×2 (04:06→12:48)
[2023-05-11 04:09] LABS: Basophils # (auto) 0.2 10 ^3/uL (0-0.2); Basophils % (auto) 1.2 % (0.0-2.0); Eosinophils # (auto) 0.4 10 ^3/uL (0-0.8); Hematocrit 27.3 % (41.0-53.0); Lymphocytes # (auto) 0.8 10 ^3/uL (0.4-5.4); Mean Corpuscular Hemoglobin 30.7 pg (28.0-32.0); Mean Corpuscular Volume 92.9 fL (80.0-100.0); Monocytes # (auto) 1.3 10 ^3/uL (0-1.3); Monocytes % (auto) 9.9 % (0.0-12.0); Neutrophils # (auto) 10.1 10 ^3/uL (1.6-8.6); Neutrophils % (auto) 79.9 % (37.0-80.0); Red Blood Cells 2.94 10^6/uL (4.5-5.90); Red Cell Distribution Width 14.7 % (11.8-14.3); White Blood Cell 12.7 10^3/uL (4.4-10.8)
[2023-05-11 04:23] LABS: Potassium 4.3 mmol/L (3.5-5.1)
[2023-05-11 04:27] LABS: BUN/Creatinine Ratio 12.6 (10.0-20.0); Calcium 6.2 mg/dL (8.5-10.1)
[2023-05-11] MEDS: CALCIUM ACETATE 667 MG CAP NG SCH ×3 (05:39→21:12)
[2023-05-11] MEDS: ACCU-CHEK COMFORT CURVE STRIP VI SCH ×4 (05:45→21:14)
[2023-05-11] MEDS: InsuLIN REG 1unit/0.01ml Soln (100units/ml) SC SCH ×4 (05:50→21:13)
[2023-05-11] MEDS ORDERED: SODIUM CHL 0.9% 1000 ML BAG XX ONE (07:00)
[2023-05-11] MEDS: cefTRIAXone 1GM/50ML D5W 50 ML IV SCH (09:01)
[2023-05-11 09:18] LABS: Base Excess -6.1 mmol/L (-2.0-2.0)
[2023-05-11] MEDS: DOCUSATE ORAL LIQUID 100 MG/10 ML UD GT SCH ×2 (10:00→21:07)
[2023-05-11] MEDS: METOPROLOL SUCCINATE XL 50 MG TAB PO SCH (10:00)
[2023-05-11] MEDS: fentaNYL Drip 2500mCg/250mlNS 250 ML IV SCH (12:40)
[2023-05-11] MEDS: PANTOPRAZOLE 40 MG/10 ML VIAL INJ IV SCH (12:41)
[2023-05-11] MEDS: ASPirin 81 mg TAB PO SCH (12:41)
[2023-05-11] MEDS: ENOXAPARIN SOD 30 MG/0.3 ML SYRINGE SC SCH (12:42)
[2023-05-11] MEDS: NOREPINEPHRINE 8 MG/250ML KIT 250 ML IV SCH (16:19)
[2023-05-11] MEDS: PHENYLEPHRINE INJ 80 MG in SODIUM CHL 0.9% 242 ML IV SCH (19:09)
[2023-05-11] MEDS ORDERED: EPOETIN ALFA-EPBX 10,000 UNIT/1ML VIAL SC ONE (21:00)
[2023-05-11] MEDS: ATORVASTATIN 20 MG TAB PO SCH (21:12)
[2023-05-11] MEDS ORDERED: LINEZOLID 600MG/300ML 300 ML IV SCH (22:00)
[2023-05-12] VITALS (109 sets, daily range): BP systolic 81–181; BP diastolic 43–85; PULSE 62–132; RESP 16–48; TEMP 97.2–99.1; O2SAT 80–100
[2023-05-12] MEDS: MIDAZOLAM DRIP 50 mg/50mL 50 ML IV SCH ×2 (00:14→18:40)
[2023-05-12 04:49] LABS: BUN/Creatinine Ratio 9.9 (10.0-20.0); Calcium 7.3 mg/dL (8.7-10.4); Magnesium 2.4 mg/dL (1.6-2.6)
[2023-05-12 05:08] LABS: Basophils # (auto) 0.1 10 ^3/uL (0-0.2); Basophils % (auto) 0.5 % (0.0-2.0); Eosinophils # (auto) 0.2 10 ^3/uL (0-0.8); Eosinophils % (auto) 2.3 % (0.0-7.0); Hematocrit 25.9 % (41.0-53.0); Hemoglobin 8.5 g/dL (13.5-17.5); Lymphocytes # (auto) 0.8 10 ^3/uL (0.4-5.4); Mean Corpuscular Hemoglobin 30.3 pg (28.0-32.0); Mean Corpuscular Hgb Conc. 32.6 g/dL (32.0-36.0); Mean Corpuscular Volume 92.8 fL (80.0-100.0); Monocytes # (auto) 1.2 10 ^3/uL (0-1.3); Monocytes % (auto) 11.1 % (0.0-12.0); Neutrophils # (auto) 8.7 10 ^3/uL (1.6-8.6); Neutrophils % (auto) 79.1 % (37.0-80.0); Nucleated Red Blood Cells % 0.4 %; Red Cell Distribution Width 14.7 % (11.8-14.3)
[2023-05-12] MEDS: CALCIUM ACETATE 667 MG CAP NG SCH ×3 (05:57→22:16)
[2023-05-12] MEDS: InsuLIN REG 1unit/0.01ml Soln (100units/ml) SC SCH ×4 (05:57→22:17)
[2023-05-12] MEDS: ACCU-CHEK COMFORT CURVE STRIP VI SCH ×4 (05:58→22:16)
[2023-05-12 06:33] LABS: Base Excess -5.5 mmol/L (-2.0-2.0)
[2023-05-12] MEDS: DOCUSATE ORAL LIQUID 100 MG/10 ML UD GT SCH ×2 (09:50→22:00)
[2023-05-12] MEDS: CEFEPIME 1GM/ 50ML 50 ML IV SCH (09:51)
[2023-05-12] MEDS: PANTOPRAZOLE 40 MG/10 ML VIAL INJ IV SCH (09:51)
[2023-05-12] MEDS: ENOXAPARIN SOD 30 MG/0.3 ML SYRINGE SC SCH (09:52)
[2023-05-12] MEDS: ASPirin 81 mg TAB PO SCH (09:52)
[2023-05-12] MEDS: METOPROLOL SUCCINATE XL 50 MG TAB PO SCH (09:52)
[2023-05-12] MEDS: LINEZOLID 600MG/300ML 300 ML IV SCH (14:09)
[2023-05-12] MEDS: fentaNYL Drip 2500mCg/250mlNS 250 ML IV SCH ×2 (16:00→18:22)
[2023-05-12] MEDS: BUMETANIDE 2.5mg/10ml (0.25 mg/ml) INJ IV SCH (17:55)
[2023-05-12] MEDS: ALBUTEROL SULF 2.5 MG/0.5ML(0.5%) NEB SOLN NEB PRN (19:05)
[2023-05-12] MEDS: PHENYLEPHRINE INJ 80 MG in SODIUM CHL 0.9% 242 ML IV SCH (19:15)
[2023-05-12] MEDS: ATORVASTATIN 20 MG TAB PO SCH (22:16)
[2023-05-13] VITALS (107 sets, daily range): BP systolic 87–184; BP diastolic 38–101; PULSE 74–124; RESP 12–36; TEMP 97.7–99.7; O2SAT 81–100
[2023-05-13] MEDS: LINEZOLID 600MG/300ML 300 ML IV SCH ×2 (01:49→14:17)
[2023-05-13] MEDS: MIDAZOLAM DRIP 50 mg/50mL 50 ML IV SCH ×3 (01:50→23:17)
[2023-05-13 04:23] LABS: Basophils # (auto) 0.1 10 ^3/uL (0-0.2); Basophils % (auto) 0.6 % (0.0-2.0); Eosinophils # (auto) 0.3 10 ^3/uL (0-0.8); Eosinophils % (auto) 2.5 % (0.0-7.0); Hematocrit 24.4 % (41.0-53.0); Hemoglobin 8.1 g/dL (13.5-17.5); Lymphocytes % (auto) 8.3 % (10.0-50.0); Mean Corpuscular Hemoglobin 30.5 pg (28.0-32.0); Mean Corpuscular Hgb Conc. 33.2 g/dL (32.0-36.0); Mean Corpuscular Volume 91.8 fL (80.0-100.0); Monocytes # (auto) 1.1 10 ^3/uL (0-1.3); Monocytes % (auto) 9.6 % (0.0-12.0); Neutrophils # (auto) 9.2 10 ^3/uL (1.6-8.6); Red Blood Cells 2.65 10^6/uL (4.5-5.90); Red Cell Distribution Width 14.7 % (11.8-14.3); White Blood Cell 11.6 10^3/uL (4.4-10.8)
[2023-05-13 04:40] LABS: Anion Gap 12.7 (5-15); Carbon Dioxide 24.3 mmol/L (20-30); Chloride 97 mmol/L (98-107); Potassium 3.8 mmol/L (3.5-5.1); Sodium 134 mmol/L (136-145)
[2023-05-13 04:41] LABS: Calcium 7.1 mg/dL (8.7-10.4)
[2023-05-13 04:46] LABS: BUN/Creatinine Ratio 9.6 (10.0-20.0); Blood Urea Nitrogen 63 mg/dL (9-23); Glucose 157 mg/dL (74-106)
[2023-05-13] MEDS: ACCU-CHEK COMFORT CURVE STRIP VI SCH ×4 (06:30→21:47)
[2023-05-13] MEDS: BUMETANIDE 2.5mg/10ml (0.25 mg/ml) INJ IV SCH ×2 (06:30→17:36)
[2023-05-13] MEDS: CALCIUM ACETATE 667 MG CAP NG SCH ×3 (06:30→21:47)
[2023-05-13] MEDS: InsuLIN REG 1unit/0.01ml Soln (100units/ml) SC SCH ×4 (06:31→21:47)
[2023-05-13] MEDS ORDERED: SODIUM CHL 0.9% 1000 ML BAG XX ONE (07:00)
[2023-05-13 07:50] LABS: Base Excess -3.7 mmol/L (-2.0-2.0)
[2023-05-13] MEDS: DOCUSATE ORAL LIQUID 100 MG/10 ML UD GT SCH ×2 (10:00→21:47)
[2023-05-13] MEDS: METOPROLOL SUCCINATE XL 50 MG TAB PO SCH (10:00)
[2023-05-13] MEDS: CEFEPIME 1GM/ 50ML 50 ML IV SCH (10:18)
[2023-05-13] MEDS: PANTOPRAZOLE 40 MG/10 ML VIAL INJ IV SCH (10:19)
[2023-05-13] MEDS: ASPirin 81 mg TAB PO SCH (10:19)
[2023-05-13] MEDS: ENOXAPARIN SOD 30 MG/0.3 ML SYRINGE SC SCH (10:19)
[2023-05-13] MEDS: fentaNYL Drip 2500mCg/250mlNS 250 ML IV SCH (14:11)
[2023-05-13] MEDS: NOREPINEPHRINE 8 MG/250ML KIT 250 ML IV SCH (16:00)
[2023-05-13] MEDS: PHENYLEPHRINE INJ 80 MG in SODIUM CHL 0.9% 242 ML IV SCH (19:15)
[2023-05-13] MEDS ORDERED: EPOETIN ALFA-EPBX 4,000 UNIT/ML VIAL SC ONE (21:00)
[2023-05-13] MEDS: ATORVASTATIN 20 MG TAB PO SCH (21:47)
[2023-05-14] VITALS (109 sets, daily range): BP systolic 103–169; BP diastolic 59–84; PULSE 85–121; RESP 18–25; TEMP 98.8–100; O2SAT 91–100
[2023-05-14] MEDS: LINEZOLID 600MG/300ML 300 ML IV SCH ×2 (01:57→13:12)
[2023-05-14] MEDS: fentaNYL Drip 2500mCg/250mlNS 250 ML IV SCH ×2 (02:28→20:42)
[2023-05-14] MEDS: BUMETANIDE 2.5mg/10ml (0.25 mg/ml) INJ IV SCH ×2 (05:50→17:58)
[2023-05-14] MEDS: MIDAZOLAM DRIP 50 mg/50mL 50 ML IV SCH ×3 (05:50→23:31)
[2023-05-14] MEDS: CALCIUM ACETATE 667 MG CAP NG SCH ×3 (05:50→21:47)
[2023-05-14] MEDS: ACCU-CHEK COMFORT CURVE STRIP VI SCH ×4 (06:27→21:46)
[2023-05-14] MEDS: InsuLIN REG 1unit/0.01ml Soln (100units/ml) SC SCH ×4 (06:28→21:47)
[2023-05-14 07:32] LABS: Base Excess 1.2 mmol/L (-2.0-2.0)
[2023-05-14 08:49] LABS: Basophils # (auto) 0.1 10 ^3/uL (0-0.2); Eosinophils # (auto) 0.3 10 ^3/uL (0-0.8); Monocytes % (auto) 9.9 % (0.0-12.0); Red Cell Distribution Width 14.8 % (11.8-14.3)
[2023-05-14 08:51] LABS: Basophils % (auto) 0.9 % (0.0-2.0); Eosinophils % (auto) 2.6 % (0.0-7.0); Hematocrit 23.9 % (41.0-53.0); Hemoglobin 7.9 g/dL (13.5-17.5); Lymphocytes % (auto) 9.1 % (10.0-50.0); Mean Corpuscular Hemoglobin 30.6 pg (28.0-32.0); Mean Corpuscular Hgb Conc. 33.2 g/dL (32.0-36.0); Mean Corpuscular Volume 92.2 fL (80.0-100.0); Neutrophils # (auto) 8.1 10 ^3/uL (1.6-8.6); Neutrophils % (auto) 77.5 % (37.0-80.0); Nucleated Red Blood Cells % 0.1 %; Red Blood Cells 2.59 10^6/uL (4.5-5.90); White Blood Cell 10.5 10^3/uL (4.4-10.8)
[2023-05-14] MEDS: ENOXAPARIN SOD 30 MG/0.3 ML SYRINGE SC SCH (09:06)
[2023-05-14] MEDS: PANTOPRAZOLE 40 MG/10 ML VIAL INJ IV SCH (09:06)
[2023-05-14] MEDS: ASPirin 81 mg TAB PO SCH (09:06)
[2023-05-14] MEDS: CEFEPIME 1GM/ 50ML 50 ML IV SCH (09:06)
[2023-05-14] MEDS: DOCUSATE ORAL LIQUID 100 MG/10 ML UD GT SCH ×2 (09:07→21:47)
[2023-05-14] MEDS: METOPROLOL SUCCINATE XL 50 MG TAB PO SCH (09:07)
[2023-05-14 09:50] LABS: Alanine Aminotransferase 19 U/L (7-40); Albumin 2.8 g/dL (3.2-4.8); Alkaline Phosphatase 79 U/L (46-116); Anion Gap 10.3 (5-15); Aspartate Aminotransferase 20 U/L (13-40); BUN/Creatinine Ratio 6.4 (10.0-20.0); Calcium 7.3 mg/dL (8.5-10.1); Carbon Dioxide 26.7 mmol/L (20-30); Chloride 97 mmol/L (98-107); Glucose 142 mg/dL (74-106); Potassium 3.4 mmol/L (3.5-5.1); Sodium 134 mmol/L (136-145)
[2023-05-14 09:51] LABS: Bilirubin, Total < 0.2 mg/dL (0.2-1.0); Total Protein 6.4 g/dL (5.7-8.2)
[2023-05-14 09:59] LABS: Blood Urea Nitrogen 32 mg/dL (9-23)
[2023-05-14] MEDS: NOREPINEPHRINE 8 MG/250ML KIT 250 ML IV SCH (16:00)
[2023-05-14] MEDS: PHENYLEPHRINE INJ 80 MG in SODIUM CHL 0.9% 242 ML IV SCH (19:15)
[2023-05-14 19:20] LABS: Rapid Influenza A Negative (Negative); Rapid Influenza B Negative (Negative)
[2023-05-14] MEDS: ATORVASTATIN 20 MG TAB PO SCH (21:47)
[2023-05-15] VITALS (104 sets, daily range): BP systolic 90–163; BP diastolic 52–85; PULSE 80–115; RESP 14–25; TEMP 97–99.3; O2SAT 93–100
[2023-05-15] MEDS: LINEZOLID 600MG/300ML 300 ML IV SCH ×2 (01:41→16:00)
[2023-05-15] MEDS: BUMETANIDE 2.5mg/10ml (0.25 mg/ml) INJ IV SCH ×2 (06:00→17:45)
[2023-05-15] MEDS: CALCIUM ACETATE 667 MG CAP NG SCH ×3 (06:00→21:50)
[2023-05-15] MEDS: MIDAZOLAM DRIP 50 mg/50mL 50 ML IV SCH (06:08)
[2023-05-15 06:17] LABS: Base Excess 0.3 mmol/L (-2.0-2.0)
[2023-05-15] MEDS: ACCU-CHEK COMFORT CURVE STRIP VI SCH ×4 (06:22→21:49)
[2023-05-15] MEDS: InsuLIN REG 1unit/0.01ml Soln (100units/ml) SC SCH ×4 (06:23→21:50)
[2023-05-15 08:40] LABS: Basophils # (auto) 0.1 10 ^3/uL (0-0.2); Basophils % (auto) 0.5 % (0.0-2.0); Eosinophils # (auto) 0.3 10 ^3/uL (0-0.8); Hematocrit 24.3 % (41.0-53.0); Lymphocytes % (auto) 10.1 % (10.0-50.0); Mean Corpuscular Hemoglobin 30.3 pg (28.0-32.0); Mean Corpuscular Hgb Conc. 32.8 g/dL (32.0-36.0); Mean Corpuscular Volume 92.5 fL (80.0-100.0); Monocytes % (auto) 9.8 % (0.0-12.0); Neutrophils # (auto) 7.8 10 ^3/uL (1.6-8.6); Neutrophils % (auto) 76.6 % (37.0-80.0); Nucleated Red Blood Cells % 0.1 %; Red Blood Cells 2.63 10^6/uL (4.5-5.90); Red Cell Distribution Width 14.9 % (11.8-14.3); White Blood Cell 10.2 10^3/uL (4.4-10.8)
[2023-05-15 09:14] LABS: Alanine Aminotransferase 18 U/L (7-40); Albumin 2.8 g/dL (3.2-4.8); Alkaline Phosphatase 84 U/L (46-116); Anion Gap 7.9 (5-15); Aspartate Aminotransferase 23 U/L (13-40); Bilirubin, Total < 0.2 mg/dL (0.2-1.0); Calcium 7.3 mg/dL (8.5-10.1); Carbon Dioxide 26.1 mmol/L (20-30); Chloride 97 mmol/L (98-107); Glucose 128 mg/dL (74-106); Potassium 3.5 mmol/L (3.5-5.1); Sodium 131 mmol/L (136-145); Total Protein 6.4 g/dL (5.7-8.2)
[2023-05-15 09:15] LABS: Blood Urea Nitrogen 43 mg/dL (9-23)
[2023-05-15] MEDS: ASPirin 81 mg TAB PO SCH (09:21)
[2023-05-15] MEDS: CEFEPIME 1GM/ 50ML 50 ML IV SCH (09:21)
[2023-05-15] MEDS: PANTOPRAZOLE 40 MG/10 ML VIAL INJ IV SCH (09:21)
[2023-05-15] MEDS: DOCUSATE ORAL LIQUID 100 MG/10 ML UD GT SCH ×2 (09:21→21:50)
[2023-05-15] MEDS: ENOXAPARIN SOD 30 MG/0.3 ML SYRINGE SC SCH (09:21)
[2023-05-15] MEDS: METOPROLOL SUCCINATE XL 50 MG TAB PO SCH (09:23)
[2023-05-15] MEDS ORDERED: HEPARIN 1,000 UNITS/ml 1ML VIAL IV ONE (15:30)
[2023-05-15] MEDS: NOREPINEPHRINE 8 MG/250ML KIT 250 ML IV SCH (16:00)
[2023-05-15] MEDS: PHENYLEPHRINE INJ 80 MG in SODIUM CHL 0.9% 242 ML IV SCH (19:15)
[2023-05-15] MEDS: ATORVASTATIN 20 MG TAB PO SCH (21:50)
[2023-05-16] VITALS (109 sets, daily range): BP systolic 75–201; BP diastolic 41–96; PULSE 83–139; RESP 21–41; TEMP 89.1–99.7; O2SAT 93–100
[2023-05-16] MEDS: PROPOFOL 100 ML IV SCH (01:45)
[2023-05-16] MEDS: MIDAZOLAM DRIP 50 mg/50mL 50 ML IV SCH ×2 (02:01→05:36)
[2023-05-16] MEDS: fentaNYL Drip 2500mCg/250mlNS 250 ML IV SCH ×2 (02:04→19:19)
[2023-05-16] MEDS: ALBUTEROL SULF 2.5 MG/0.5ML(0.5%) NEB SOLN NEB PRN ×2 (02:56→06:26)
[2023-05-16] MEDS: LINEZOLID 600MG/300ML 300 ML IV SCH ×2 (03:41→13:41)
[2023-05-16 04:57] LABS: Basophils # (auto) 0.1 10 ^3/uL (0-0.2); Eosinophils # (auto) 0.2 10 ^3/uL (0-0.8); Hematocrit 23.9 % (41.0-53.0); Hemoglobin 7.9 g/dL (13.5-17.5); Mean Corpuscular Hemoglobin 30.9 pg (28.0-32.0)
[2023-05-16 05:02] LABS: Anion Gap 13.2 (5-15); Carbon Dioxide 22.8 mmol/L (20-30); Chloride 97 mmol/L (98-107); Potassium 3.8 mmol/L (3.5-5.1); Sodium 133 mmol/L (136-145)
[2023-05-16 05:03] LABS: Basophils % (auto) 0.5 % (0.0-2.0); Eosinophils % (auto) 1.7 % (0.0-7.0); Lymphocytes # (auto) 0.9 10 ^3/uL (0.4-5.4); Lymphocytes % (auto) 9.3 % (10.0-50.0); Mean Corpuscular Hgb Conc. 33.1 g/dL (32.0-36.0); Mean Corpuscular Volume 93.2 fL (80.0-100.0); Monocytes % (auto) 10.9 % (0.0-12.0); Neutrophils # (auto) 7.4 10 ^3/uL (1.6-8.6); Neutrophils % (auto) 77.6 % (37.0-80.0); Nucleated Red Blood Cells % 0.1 %; Red Blood Cells 2.56 10^6/uL (4.5-5.90); Red Cell Distribution Width 14.6 % (11.8-14.3); White Blood Cell 9.5 10^3/uL (4.4-10.8)
[2023-05-16 05:04] LABS: Calcium 7.8 mg/dL (8.7-10.4)
[2023-05-16 05:08] LABS: Glucose 136 mg/dL (74-106)
[2023-05-16 05:09] LABS: BUN/Creatinine Ratio 5.8 (10.0-20.0)
[2023-05-16 05:29] LABS: Blood Urea Nitrogen 31 mg/dL (9-23)
[2023-05-16] MEDS: BUMETANIDE 2.5mg/10ml (0.25 mg/ml) INJ IV SCH ×2 (05:36→17:25)
[2023-05-16] MEDS: CALCIUM ACETATE 667 MG CAP NG SCH ×3 (05:37→21:46)
[2023-05-16] MEDS: InsuLIN REG 1unit/0.01ml Soln (100units/ml) SC SCH ×4 (06:31→21:54)
[2023-05-16] MEDS: ACCU-CHEK COMFORT CURVE STRIP VI SCH ×4 (06:31→21:56)
[2023-05-16 07:33] LABS: Base Excess -1.9 mmol/L (-2.0-2.0)
[2023-05-16] MEDS: DOCUSATE ORAL LIQUID 100 MG/10 ML UD GT SCH ×2 (09:48→21:46)
[2023-05-16] MEDS: CEFEPIME 1GM/ 50ML 50 ML IV SCH (09:48)
[2023-05-16] MEDS: PANTOPRAZOLE 40 MG/10 ML VIAL INJ IV SCH (09:48)
[2023-05-16] MEDS: ENOXAPARIN SOD 30 MG/0.3 ML SYRINGE SC SCH (09:49)
[2023-05-16] MEDS: ASPirin 81 mg TAB PO SCH (09:49)
[2023-05-16] MEDS: METOPROLOL SUCCINATE XL 50 MG TAB PO SCH (09:49)
[2023-05-16] MEDS ORDERED: Nepro With Carb Steady 1 Liter Bottle GT SCH (12:15)
[2023-05-16] MEDS: NOREPINEPHRINE 8 MG/250ML KIT 250 ML IV SCH (16:00)
[2023-05-16] MEDS: ATORVASTATIN 20 MG TAB PO SCH (21:46)
[2023-05-17] VITALS (105 sets, daily range): BP systolic 87–176; BP diastolic 52–87; PULSE 74–124; RESP 12–42; TEMP 87.6–99.5; O2SAT 90–100
[2023-05-17] MEDS: PROPOFOL 100 ML IV SCH (01:45)
[2023-05-17] MEDS: LINEZOLID 600MG/300ML 300 ML IV SCH ×2 (02:11→15:40)
[2023-05-17 04:11] LABS: Eosinophils # (auto) 0.2 10 ^3/uL (0-0.8); Lymphocytes # (auto) 1.1 10 ^3/uL (0.4-5.4); Monocytes # (auto) 1.1 10 ^3/uL (0-1.3); Nucleated Red Blood Cells % 0.1 %
[2023-05-17 04:15] LABS: Basophils # (auto) 0.1 10 ^3/uL (0-0.2); Basophils % (auto) 0.6 % (0.0-2.0); Eosinophils % (auto) 2.4 % (0.0-7.0); Hematocrit 23.9 % (41.0-53.0); Lymphocytes % (auto) 10.6 % (10.0-50.0); Mean Corpuscular Hemoglobin 31.3 pg (28.0-32.0); Mean Corpuscular Hgb Conc. 33.7 g/dL (32.0-36.0); Monocytes % (auto) 10.5 % (0.0-12.0); Neutrophils # (auto) 7.6 10 ^3/uL (1.6-8.6); Neutrophils % (auto) 75.9 % (37.0-80.0); Red Blood Cells 2.57 10^6/uL (4.5-5.90); Red Cell Distribution Width 14.6 % (11.8-14.3); White Blood Cell 10.1 10^3/uL (4.4-10.8)
[2023-05-17 04:37] LABS: Anion Gap 11.3 (5-15); Carbon Dioxide 23.7 mmol/L (20-30); Chloride 96 mmol/L (98-107); Potassium 3.9 mmol/L (3.5-5.1); Sodium 131 mmol/L (136-145)
[2023-05-17 04:38] LABS: Calcium 7.6 mg/dL (8.7-10.4)
[2023-05-17 04:43] LABS: BUN/Creatinine Ratio 5.7 (10.0-20.0); Blood Urea Nitrogen 37 mg/dL (9-23); Glucose 135 mg/dL (74-106)
[2023-05-17] MEDS: CALCIUM ACETATE 667 MG CAP NG SCH ×3 (06:43→21:52)
[2023-05-17] MEDS: BUMETANIDE 2.5mg/10ml (0.25 mg/ml) INJ IV SCH ×2 (06:43→17:41)
[2023-05-17] MEDS: ACCU-CHEK COMFORT CURVE STRIP VI SCH ×4 (06:43→21:53)
[2023-05-17] MEDS: InsuLIN REG 1unit/0.01ml Soln (100units/ml) SC SCH ×4 (06:49→21:55)
[2023-05-17] MEDS ORDERED: SODIUM CHL 0.9% 1000 ML BAG XX ONE (07:00)
[2023-05-17 07:44] LABS: Base Excess 0.3 mmol/L (-2.0-2.0)
[2023-05-17] MEDS ORDERED: ALBUMIN 25% 100 ML IV ONE (08:30)
[2023-05-17] MEDS ORDERED: CATHFLO ACTIVASE (ALTEPLASE) 2 MG VIAL IV ONE (09:00)
[2023-05-17] MEDS: METOPROLOL SUCCINATE XL 50 MG TAB PO SCH (10:00)
[2023-05-17] MEDS: DOCUSATE ORAL LIQUID 100 MG/10 ML UD GT SCH ×2 (10:24→21:52)
[2023-05-17] MEDS: CEFEPIME 1GM/ 50ML 50 ML IV SCH (10:25)
[2023-05-17] MEDS: ASPirin 81 mg TAB PO SCH (10:25)
[2023-05-17] MEDS: PANTOPRAZOLE 40 MG/10 ML VIAL INJ IV SCH (10:25)
[2023-05-17] MEDS: ENOXAPARIN SOD 30 MG/0.3 ML SYRINGE SC SCH (10:25)
[2023-05-17] MEDS: NOREPINEPHRINE 8 MG/250ML KIT 250 ML IV SCH (17:40)
[2023-05-17] MEDS: MIDAZOLAM DRIP 50 mg/50mL 50 ML IV SCH (17:40)
[2023-05-17] MEDS: ATORVASTATIN 20 MG TAB PO SCH (21:52)
[2023-05-17] MEDS: fentaNYL Drip 2500mCg/250mlNS 250 ML IV SCH (21:55)
[2023-05-18] VITALS (112 sets, daily range): BP systolic 84–172; BP diastolic 49–85; PULSE 74–126; RESP 15–50; TEMP 80.2–99.1; O2SAT 85–100
[2023-05-18] MEDS: PROPOFOL 100 ML IV SCH (01:45)
[2023-05-18] MEDS: LINEZOLID 600MG/300ML 300 ML IV SCH ×2 (02:02→14:40)
[2023-05-18] MEDS: MIDAZOLAM DRIP 50 mg/50mL 50 ML IV SCH (03:02)
[2023-05-18 04:03] LABS: Basophils # (auto) 0.1 10 ^3/uL (0-0.2); Eosinophils # (auto) 0.2 10 ^3/uL (0-0.8); Hematocrit 22.8 % (41.0-53.0); Lymphocytes # (auto) 1.1 10 ^3/uL (0.4-5.4); Neutrophils % (auto) 71.4 % (37.0-80.0)
[2023-05-18 04:08] LABS: Basophils % (auto) 0.8 % (0.0-2.0); Eosinophils % (auto) 2.4 % (0.0-7.0); Hemoglobin 7.6 g/dL (13.5-17.5); Lymphocytes % (auto) 14.2 % (10.0-50.0); Mean Corpuscular Hemoglobin 30.9 pg (28.0-32.0); Mean Corpuscular Hgb Conc. 33.5 g/dL (32.0-36.0); Monocytes # (auto) 0.9 10 ^3/uL (0-1.3); Monocytes % (auto) 11.2 % (0.0-12.0); Neutrophils # (auto) 5.6 10 ^3/uL (1.6-8.6); Nucleated Red Blood Cells % 0.1 %; Red Blood Cells 2.48 10^6/uL (4.5-5.90); Red Cell Distribution Width 14.2 % (11.8-14.3); White Blood Cell 7.9 10^3/uL (4.4-10.8)
[2023-05-18 04:11] LABS: Anion Gap 9.8 (5-15); Carbon Dioxide 25.2 mmol/L (20-30); Chloride 98 mmol/L (98-107); Potassium 4.1 mmol/L (3.5-5.1); Sodium 133 mmol/L (136-145)
[2023-05-18 04:12] LABS: Calcium 7.8 mg/dL (8.7-10.4)
[2023-05-18 04:17] LABS: BUN/Creatinine Ratio 5.3 (10.0-20.0); Glucose 145 mg/dL (74-106)
[2023-05-18 04:28] LABS: Blood Urea Nitrogen 26 mg/dL (9-23)
[2023-05-18] MEDS: BUMETANIDE 2.5mg/10ml (0.25 mg/ml) INJ IV SCH ×2 (06:09→18:05)
[2023-05-18] MEDS: CALCIUM ACETATE 667 MG CAP NG SCH ×3 (06:09→22:49)
[2023-05-18] MEDS: ACCU-CHEK COMFORT CURVE STRIP VI SCH ×4 (06:16→22:49)
[2023-05-18] MEDS: InsuLIN REG 1unit/0.01ml Soln (100units/ml) SC SCH ×4 (06:17→22:00)
[2023-05-18 07:19] LABS: Base Excess 0.7 mmol/L (-2.0-2.0)
[2023-05-18] MEDS: METOPROLOL SUCCINATE XL 50 MG TAB PO SCH (10:00)
[2023-05-18] MEDS: CEFEPIME 1GM/ 50ML 50 ML IV SCH (10:07)
[2023-05-18] MEDS: DOCUSATE ORAL LIQUID 100 MG/10 ML UD GT SCH ×2 (10:07→22:48)
[2023-05-18] MEDS: ASPirin 81 mg TAB PO SCH (10:08)
[2023-05-18] MEDS: PANTOPRAZOLE 40 MG/10 ML VIAL INJ IV SCH (10:08)
[2023-05-18] MEDS: ENOXAPARIN SOD 30 MG/0.3 ML SYRINGE SC SCH (10:09)
[2023-05-18] MEDS: NOREPINEPHRINE 8 MG/250ML KIT 250 ML IV SCH (16:00)
[2023-05-18] MEDS: fentaNYL Drip 2500mCg/250mlNS 250 ML IV SCH (18:05)
[2023-05-18] MEDS: ATORVASTATIN 20 MG TAB PO SCH (22:48)
[2023-05-19] VITALS (111 sets, daily range): BP systolic 96–178; BP diastolic 55–98; PULSE 79–117; RESP 10–26; TEMP 98.5–99.2; O2SAT 93–100
[2023-05-19] MEDS: MIDAZOLAM DRIP 50 mg/50mL 50 ML IV SCH ×2 (00:26→23:44)
[2023-05-19] MEDS: fentaNYL Drip 2500mCg/250mlNS 250 ML IV SCH (01:09)
[2023-05-19] MEDS: LINEZOLID 600MG/300ML 300 ML IV SCH ×2 (01:36→17:03)
[2023-05-19] MEDS: PROPOFOL 100 ML IV SCH (01:37)
[2023-05-19 04:24] LABS: Anion Gap 10.2 (5-15); Carbon Dioxide 23.8 mmol/L (20-30); Chloride 97 mmol/L (98-107); Potassium 3.9 mmol/L (3.5-5.1); Sodium 131 mmol/L (136-145)
[2023-05-19 04:25] LABS: Calcium 7.9 mg/dL (8.7-10.4)
[2023-05-19 04:30] LABS: BUN/Creatinine Ratio 5.2 (10.0-20.0); Blood Urea Nitrogen 31 mg/dL (9-23); Glucose 147 mg/dL (74-106)
[2023-05-19 04:36] LABS: Basophils # (auto) 0.1 10 ^3/uL (0-0.2); Basophils % (auto) 0.8 % (0.0-2.0); Eosinophils # (auto) 0.2 10 ^3/uL (0-0.8); Eosinophils % (auto) 1.8 % (0.0-7.0); Hematocrit 21.9 % (41.0-53.0); Hemoglobin 7.3 g/dL (13.5-17.5); Mean Corpuscular Hemoglobin 30.9 pg (28.0-32.0); Mean Corpuscular Hgb Conc. 33.5 g/dL (32.0-36.0); Mean Corpuscular Volume 92.3 fL (80.0-100.0); Monocytes # (auto) 1.1 10 ^3/uL (0-1.3); Monocytes % (auto) 11.9 % (0.0-12.0); Neutrophils # (auto) 6.8 10 ^3/uL (1.6-8.6); Neutrophils % (auto) 74.5 % (37.0-80.0); Nucleated Red Blood Cells % 0.1 %; Red Blood Cells 2.37 10^6/uL (4.5-5.90); Red Cell Distribution Width 14.8 % (11.8-14.3); White Blood Cell 9.1 10^3/uL (4.4-10.8)
[2023-05-19] MEDS: BUMETANIDE 2.5mg/10ml (0.25 mg/ml) INJ IV SCH (06:42)
[2023-05-19] MEDS: CALCIUM ACETATE 667 MG CAP NG SCH ×3 (06:43→21:56)
[2023-05-19] MEDS: ACCU-CHEK COMFORT CURVE STRIP VI SCH ×4 (06:43→21:56)
[2023-05-19] MEDS: InsuLIN REG 1unit/0.01ml Soln (100units/ml) SC SCH ×4 (06:50→22:01)
[2023-05-19] MEDS ORDERED: SODIUM CHL 0.9% 1000 ML BAG XX ONE (07:00)
[2023-05-19 07:49] LABS: Base Excess 0.4 mmol/L (-2.0-2.0)
[2023-05-19] MEDS: METOPROLOL SUCCINATE XL 50 MG TAB PO SCH (10:00)
[2023-05-19] MEDS: ALBUTEROL SULF 2.5 MG/0.5ML(0.5%) NEB SOLN NEB PRN (11:43)
[2023-05-19] MEDS ORDERED: BUMETANIDE 2.5mg/10ml (0.25 mg/ml) INJ IV ONE (12:00)
[2023-05-19] MEDS: ASPirin 81 mg TAB PO SCH (17:03)
[2023-05-19] MEDS: DOCUSATE ORAL LIQUID 100 MG/10 ML UD GT SCH ×2 (17:03→21:56)
[2023-05-19] MEDS: PANTOPRAZOLE 40 MG/10 ML VIAL INJ IV SCH (17:03)
[2023-05-19] MEDS: ENOXAPARIN SOD 30 MG/0.3 ML SYRINGE SC SCH (17:12)
[2023-05-19] MEDS: NOREPINEPHRINE 8 MG/250ML KIT 250 ML IV SCH (17:13)
[2023-05-19] MEDS: CEFEPIME 1GM/ 50ML 50 ML IV SCH (19:26)
[2023-05-19] MEDS: ATORVASTATIN 20 MG TAB PO SCH (21:56)
[2023-05-20] VITALS (105 sets, daily range): BP systolic 94–163; BP diastolic 54–105; PULSE 83–121; RESP 13–28; TEMP 97.8–98.7; O2SAT 93–100
[2023-05-20] MEDS: LINEZOLID 600MG/300ML 300 ML IV SCH ×2 (01:31→14:06)
[2023-05-20] MEDS: PROPOFOL 100 ML IV SCH (01:45)
[2023-05-20] MEDS ORDERED: DexmedeTOMIDine 4 ML IV ONE (03:28)
[2023-05-20 04:13] LABS: Basophils # (auto) 0.1 10 ^3/uL (0-0.2); Basophils % (auto) 0.7 % (0.0-2.0); Eosinophils # (auto) 0.2 10 ^3/uL (0-0.8); Hematocrit 26.2 % (41.0-53.0); Hemoglobin 8.5 g/dL (13.5-17.5); Lymphocytes # (auto) 1.7 10 ^3/uL (0.4-5.4); Lymphocytes % (auto) 14.6 % (10.0-50.0); Mean Corpuscular Hemoglobin 29.8 pg (28.0-32.0); Mean Corpuscular Hgb Conc. 32.4 g/dL (32.0-36.0); Monocytes # (auto) 1.3 10 ^3/uL (0-1.3); Monocytes % (auto) 10.8 % (0.0-12.0); Neutrophils # (auto) 8.3 10 ^3/uL (1.6-8.6); Neutrophils % (auto) 71.9 % (37.0-80.0); Nucleated Red Blood Cells % 0.1 %; Red Blood Cells 2.85 10^6/uL (4.5-5.90); Red Cell Distribution Width 14.6 % (11.8-14.3); White Blood Cell 11.6 10^3/uL (4.4-10.8)
[2023-05-20 04:25] LABS: Anion Gap 10.5 (5-15); Carbon Dioxide 23.5 mmol/L (20-30); Chloride 95 mmol/L (98-107); Potassium 4.1 mmol/L (3.5-5.1); Sodium 129 mmol/L (136-145)
[2023-05-20 04:26] LABS: Calcium 8.1 mg/dL (8.7-10.4)
[2023-05-20 04:31] LABS: BUN/Creatinine Ratio 5.4 (10.0-20.0); Blood Urea Nitrogen 37 mg/dL (9-23); Glucose 171 mg/dL (74-106)
[2023-05-20] MEDS ORDERED: ALBUMIN 25% 100 ML IV PRN (05:45)
[2023-05-20] MEDS ORDERED: ALBUMIN 25% 100 ML IV ONE (05:54)
[2023-05-20] MEDS: CALCIUM ACETATE 667 MG CAP NG SCH ×3 (06:02→21:36)
[2023-05-20] MEDS: ACCU-CHEK COMFORT CURVE STRIP VI SCH ×4 (06:02→21:37)
[2023-05-20] MEDS: InsuLIN REG 1unit/0.01ml Soln (100units/ml) SC SCH ×4 (06:03→21:44)
[2023-05-20] MEDS: ALBUTEROL SULF 2.5 MG/0.5ML(0.5%) NEB SOLN NEB PRN (06:14)
[2023-05-20 08:59] LABS: Base Excess 0.7 mmol/L (-2.0-2.0)
[2023-05-20] MEDS: PANTOPRAZOLE 40 MG/10 ML VIAL INJ IV SCH (09:30)
[2023-05-20] MEDS: CEFEPIME 1GM/ 50ML 50 ML IV SCH (09:30)
[2023-05-20] MEDS: fentaNYL Drip 2500mCg/250mlNS 250 ML IV SCH (09:32)
[2023-05-20] MEDS: METOPROLOL SUCCINATE XL 50 MG TAB PO SCH (09:33)
[2023-05-20] MEDS: ENOXAPARIN SOD 30 MG/0.3 ML SYRINGE SC SCH (09:33)
[2023-05-20] MEDS: ASPirin 81 mg TAB PO SCH (09:33)
[2023-05-20] MEDS: DOCUSATE ORAL LIQUID 100 MG/10 ML UD GT SCH ×2 (09:33→21:44)
[2023-05-20] MEDS: NOREPINEPHRINE 8 MG/250ML KIT 250 ML IV SCH (14:07)
[2023-05-20] MEDS: ATORVASTATIN 20 MG TAB PO SCH (21:36)
[2023-05-20] MEDS: ALPRAZolam 0.5 MG TAB NG SCH (21:36)
[2023-05-21] VITALS (110 sets, daily range): BP systolic 98–174; BP diastolic 58–90; PULSE 12–111; RESP 9–29; TEMP 97.5–99.8; O2SAT 94–100
[2023-05-21] MEDS: LINEZOLID 600MG/300ML 300 ML IV SCH ×2 (01:10→12:23)
[2023-05-21] MEDS: PROPOFOL 100 ML IV SCH (01:45)
[2023-05-21 04:47] LABS: Anion Gap 7.9 (5-15); Carbon Dioxide 25.1 mmol/L (20-30); Chloride 99 mmol/L (98-107); Potassium 4.2 mmol/L (3.5-5.1); Sodium 132 mmol/L (136-145)
[2023-05-21 04:53] LABS: BUN/Creatinine Ratio 4.8 (10.0-20.0); Blood Urea Nitrogen 30 mg/dL (9-23); Glucose 167 mg/dL (74-106)
[2023-05-21 04:55] LABS: Basophils # (auto) 0.1 10 ^3/uL (0-0.2); Eosinophils # (auto) 0.2 10 ^3/uL (0-0.8); Lymphocytes # (auto) 0.7 10 ^3/uL (0.4-5.4); Lymphocytes % (auto) 9.7 % (10.0-50.0); Monocytes # (auto) 0.9 10 ^3/uL (0-1.3); Red Cell Distribution Width 14.6 % (11.8-14.3)
[2023-05-21 04:59] LABS: Eosinophils % (auto) 2.1 % (0.0-7.0); Hematocrit 20.7 % (41.0-53.0); Mean Corpuscular Hgb Conc. 33.4 g/dL (32.0-36.0); Mean Corpuscular Volume 92.8 fL (80.0-100.0); Monocytes % (auto) 11.1 % (0.0-12.0); Neutrophils # (auto) 5.9 10 ^3/uL (1.6-8.6); Neutrophils % (auto) 76.1 % (37.0-80.0); Red Blood Cells 2.23 10^6/uL (4.5-5.90); White Blood Cell 7.7 10^3/uL (4.4-10.8)
[2023-05-21 05:35] LABS: Hemoglobin 6.9 g/dL (13.5-17.5)
[2023-05-21] MEDS: ACCU-CHEK COMFORT CURVE STRIP VI SCH ×4 (06:14→22:19)
[2023-05-21] MEDS: CALCIUM ACETATE 667 MG CAP NG SCH ×3 (06:14→22:21)
[2023-05-21] MEDS: InsuLIN REG 1unit/0.01ml Soln (100units/ml) SC SCH ×4 (06:23→22:00)
[2023-05-21] MEDS: DOCUSATE ORAL LIQUID 100 MG/10 ML UD GT SCH ×2 (07:30→22:22)
[2023-05-21] MEDS: METOPROLOL SUCCINATE XL 50 MG TAB PO SCH (07:30)
[2023-05-21] MEDS: ASPirin 81 mg TAB PO SCH ×2 (07:31→08:09)
[2023-05-21] MEDS: ALBUTEROL SULF 2.5 MG/0.5ML(0.5%) NEB SOLN NEB PRN ×4 (07:33→23:56)
[2023-05-21] MEDS: PANTOPRAZOLE 40 MG/10 ML VIAL INJ IV SCH (08:09)
[2023-05-21] MEDS: ALPRAZolam 0.5 MG TAB NG SCH ×2 (08:09→22:21)
[2023-05-21] MEDS: CEFEPIME 1GM/ 50ML 50 ML IV SCH (08:10)
[2023-05-21] MEDS: MIDAZOLAM DRIP 50 mg/50mL 50 ML IV SCH (10:43)
[2023-05-21] MEDS: NOREPINEPHRINE 8 MG/250ML KIT 250 ML IV SCH (10:43)
[2023-05-21] MEDS: fentaNYL Drip 2500mCg/250mlNS 250 ML IV SCH ×2 (10:44→23:08)
[2023-05-21 15:20] LABS: Base Excess -2.2 mmol/L (-2.0-2.0)
[2023-05-21] MEDS: ACETYLCYSTEINE 10 %(100MG/ML) SOL 4ML IN SCH ×2 (18:27→23:56)
[2023-05-21] MEDS: ATORVASTATIN 20 MG TAB PO SCH (22:21)
[2023-05-22] VITALS (106 sets, daily range): BP systolic 91–180; BP diastolic 43–97; PULSE 68–131; RESP 15–35; TEMP 98–99.4; O2SAT 91–100
[2023-05-22] MEDS: PROPOFOL 100 ML IV SCH (01:45)
[2023-05-22] MEDS: LINEZOLID 600MG/300ML 300 ML IV SCH ×2 (02:26→13:11)
[2023-05-22] MEDS ORDERED: BUMETANIDE 2.5mg/10ml (0.25 mg/ml) INJ IV ONE (03:00)
[2023-05-22 05:32] LABS: Alanine Aminotransferase 27 U/L (7-40); Albumin 3.4 g/dL (3.2-4.8); Alkaline Phosphatase 108 U/L (46-116); Anion Gap 8.2 (5-15); Aspartate Aminotransferase 19 U/L (13-40); BUN/Creatinine Ratio 5.1 (10.0-20.0); Basophils # (auto) 0 10 ^3/uL (0-0.2); Basophils % (auto) 0.3 % (0.0-2.0); Bilirubin, Total 0.2 mg/dL (0.2-1.0); Blood Urea Nitrogen 37 mg/dL (9-23); Carbon Dioxide 25.8 mmol/L (20-30); Chloride 98 mmol/L (98-107); Eosinophils # (auto) 0.2 10 ^3/uL (0-0.8); Glucose 178 mg/dL (74-106); Hematocrit 25.3 % (41.0-53.0); Hemoglobin 8.7 g/dL (13.5-17.5); Lymphocytes # (auto) 0.9 10 ^3/uL (0.4-5.4); Lymphocytes % (auto) 8.3 % (10.0-50.0); Mean Corpuscular Hemoglobin 31.3 pg (28.0-32.0); Mean Corpuscular Hgb Conc. 34.2 g/dL (32.0-36.0); Mean Corpuscular Volume 91.4 fL (80.0-100.0); Monocytes # (auto) 0.9 10 ^3/uL (0-1.3); Monocytes % (auto) 8.9 % (0.0-12.0); Neutrophils # (auto) 8.4 10 ^3/uL (1.6-8.6); Neutrophils % (auto) 80.5 % (37.0-80.0); Potassium 4.7 mmol/L (3.5-5.1); Red Blood Cells 2.77 10^6/uL (4.5-5.90); Red Cell Distribution Width 14.9 % (11.8-14.3); Sodium 132 mmol/L (136-145); White Blood Cell 10.5 10^3/uL (4.4-10.8)
[2023-05-22] MEDS: ACETYLCYSTEINE 10 %(100MG/ML) SOL 4ML IN SCH ×3 (05:55→18:54)
[2023-05-22] MEDS: ALBUTEROL SULF 2.5 MG/0.5ML(0.5%) NEB SOLN NEB PRN ×3 (05:55→18:54)
[2023-05-22] MEDS: ACCU-CHEK COMFORT CURVE STRIP VI SCH ×4 (06:38→21:01)
[2023-05-22] MEDS: CALCIUM ACETATE 667 MG CAP NG SCH ×3 (06:40→21:01)
[2023-05-22] MEDS: InsuLIN REG 1unit/0.01ml Soln (100units/ml) SC SCH ×4 (06:42→21:08)
[2023-05-22 07:11] LABS: Base Excess -2.5 mmol/L (-2.0-2.0)
[2023-05-22] MEDS ORDERED: SODIUM CHL 0.9% 1000 ML BAG XX ONE (07:30)
[2023-05-22] MEDS: DOCUSATE ORAL LIQUID 100 MG/10 ML UD GT SCH ×2 (08:37→21:01)
[2023-05-22] MEDS: METOPROLOL SUCCINATE XL 50 MG TAB PO SCH (08:38)
[2023-05-22] MEDS: CEFEPIME 1GM/ 50ML 50 ML IV SCH (09:10)
[2023-05-22] MEDS: PANTOPRAZOLE 40 MG/10 ML VIAL INJ IV SCH (09:10)
[2023-05-22] MEDS: ALPRAZolam 0.5 MG TAB NG SCH ×2 (09:10→21:01)
[2023-05-22 09:59] LABS: Base Excess -1.1 mmol/L (-2.0-2.0)
[2023-05-22] MEDS ORDERED: LIDOCAINE 2%HCL (LOCAL ANESTH.) INJ 20ML MDV ONE (10:09)
[2023-05-22] MEDS ORDERED: LIDOCAINE 2% JELLY 11ml (GLYDO) ONE (10:09)
[2023-05-22] MEDS ORDERED: fentaNYL CITRATE 100 MCG/2 ML VL ONE (10:10)
[2023-05-22] MEDS ORDERED: MIDAZOLAM HCL 2MG/2ML 2ml VIAL (1mg/ml) ONE (10:10)
[2023-05-22] MEDS ORDERED: EPINEPHrine HCL 1 MG/1 ML AMP ONE (10:10)
[2023-05-22] MEDS: MIDAZOLAM DRIP 50 mg/50mL 50 ML IV SCH ×3 (10:37→11:42)
[2023-05-22] MEDS: NOREPINEPHRINE 8 MG/250ML KIT 250 ML IV SCH (11:42)
[2023-05-22] MEDS ORDERED: ALBUMIN 25% 100 ML IV ONE (14:30)
[2023-05-22] MEDS: ATORVASTATIN 20 MG TAB PO SCH (21:01)
[2023-05-23] VITALS (104 sets, daily range): BP systolic 105–170; BP diastolic 50–99; PULSE 6–119; RESP 15–39; TEMP 98.8–99.3; O2SAT 89–100
[2023-05-23] MEDS: ALBUTEROL SULF 2.5 MG/0.5ML(0.5%) NEB SOLN NEB PRN ×3 (00:47→18:30)
[2023-05-23] MEDS: ACETYLCYSTEINE 10 %(100MG/ML) SOL 4ML IN SCH ×4 (00:48→18:30)
[2023-05-23] MEDS: PROPOFOL 100 ML IV SCH (01:39)
[2023-05-23] MEDS: LINEZOLID 600MG/300ML 300 ML IV SCH ×2 (01:55→14:00)
[2023-05-23] MEDS: fentaNYL Drip 2500mCg/250mlNS 250 ML IV SCH (02:05)
[2023-05-23 04:08] LABS: Basophils # (auto) 0.1 10 ^3/uL (0-0.2); Basophils % (auto) 0.7 % (0.0-2.0); Eosinophils # (auto) 0.2 10 ^3/uL (0-0.8); Eosinophils % (auto) 2.2 % (0.0-7.0); Hematocrit 24.9 % (41.0-53.0); Hemoglobin 8.3 g/dL (13.5-17.5); Lymphocytes # (auto) 0.9 10 ^3/uL (0.4-5.4); Lymphocytes % (auto) 11.9 % (10.0-50.0); Mean Corpuscular Hgb Conc. 33.3 g/dL (32.0-36.0); Monocytes # (auto) 0.9 10 ^3/uL (0-1.3); Monocytes % (auto) 11.4 % (0.0-12.0); Neutrophils # (auto) 5.6 10 ^3/uL (1.6-8.6); Neutrophils % (auto) 73.8 % (37.0-80.0); Red Blood Cells 2.68 10^6/uL (4.5-5.90); Red Cell Distribution Width 14.6 % (11.8-14.3); White Blood Cell 7.5 10^3/uL (4.4-10.8)
[2023-05-23 05:23] LABS: Chloride 100 mmol/L (98-107); Potassium 4.5 mmol/L (3.5-5.1); Sodium 135 mmol/L (136-145)
[2023-05-23 05:24] LABS: Anion Gap 11.3 (5-15); Calcium 8.3 mg/dL (8.5-10.1); Carbon Dioxide 23.7 mmol/L (20-30)
[2023-05-23 05:29] LABS: BUN/Creatinine Ratio 4.9 (10.0-20.0); Blood Urea Nitrogen 28 mg/dL (9-23); Glucose 147 mg/dL (74-106)
[2023-05-23] MEDS: CALCIUM ACETATE 667 MG CAP NG SCH ×3 (06:24→21:00)
[2023-05-23] MEDS: ACCU-CHEK COMFORT CURVE STRIP VI SCH ×4 (06:24→20:59)
[2023-05-23] MEDS: InsuLIN REG 1unit/0.01ml Soln (100units/ml) SC SCH ×4 (06:28→20:59)
[2023-05-23] MEDS: DOCUSATE ORAL LIQUID 100 MG/10 ML UD GT SCH ×2 (07:07→21:00)
[2023-05-23] MEDS: PANTOPRAZOLE 40 MG/10 ML VIAL INJ IV SCH (07:19)
[2023-05-23] MEDS: CEFEPIME 1GM/ 50ML 50 ML IV SCH (07:19)
[2023-05-23] MEDS: ALPRAZolam 0.5 MG TAB NG SCH ×2 (07:19→21:00)
[2023-05-23 09:00] LABS: Base Excess -1.4 mmol/L (-2.0-2.0)
[2023-05-23] MEDS: METOPROLOL SUCCINATE XL 50 MG TAB PO SCH (10:00)
[2023-05-23] MEDS: MIDAZOLAM DRIP 50 mg/50mL 50 ML IV SCH (10:25)
[2023-05-23] MEDS: NOREPINEPHRINE 8 MG/250ML KIT 250 ML IV SCH (10:25)
[2023-05-23] MEDS ORDERED: LABETALOL HCL 5 MG/ML 4ML SYRINGE IV PRN (11:45)
[2023-05-23] MEDS ORDERED: BUMETANIDE 2.5mg/10ml (0.25 mg/ml) INJ IV ONE (12:15)
[2023-05-23 16:09] LABS: Base Excess -0.7 mmol/L (-2.0-2.0)
[2023-05-23] MEDS: LORazepam 2MG/ML-1ML VIAL IV PRN (19:57)
[2023-05-23] MEDS: ATORVASTATIN 20 MG TAB PO SCH (21:00)
[2023-05-24] VITALS (78 sets, daily range): BP systolic 130–159; BP diastolic 69–85; PULSE 89–108; RESP 16–38; TEMP 98.2–98.7; O2SAT 94–100
[2023-05-24] MEDS: ACETYLCYSTEINE 10 %(100MG/ML) SOL 4ML IN SCH ×4 (00:04→18:55)
[2023-05-24] MEDS: ALBUTEROL SULF 2.5 MG/0.5ML(0.5%) NEB SOLN NEB PRN ×4 (00:04→18:55)
[2023-05-24] MEDS: LINEZOLID 600MG/300ML 300 ML IV SCH ×2 (01:28→14:44)
[2023-05-24 04:36] LABS: Basophils # (auto) 0.1 10 ^3/uL (0-0.2); Basophils % (auto) 0.8 % (0.0-2.0); Eosinophils # (auto) 0.1 10 ^3/uL (0-0.8); Hematocrit 26.5 % (41.0-53.0); Hemoglobin 8.8 g/dL (13.5-17.5); Lymphocytes # (auto) 0.8 10 ^3/uL (0.4-5.4); Lymphocytes % (auto) 7.8 % (10.0-50.0); Mean Corpuscular Hemoglobin 30.8 pg (28.0-32.0); Mean Corpuscular Hgb Conc. 33.3 g/dL (32.0-36.0); Mean Corpuscular Volume 92.5 fL (80.0-100.0); Monocytes # (auto) 1.1 10 ^3/uL (0-1.3); Monocytes % (auto) 10.9 % (0.0-12.0); Neutrophils # (auto) 7.8 10 ^3/uL (1.6-8.6); Neutrophils % (auto) 79.5 % (37.0-80.0); Red Blood Cells 2.86 10^6/uL (4.5-5.90); Red Cell Distribution Width 14.3 % (11.8-14.3); White Blood Cell 9.8 10^3/uL (4.4-10.8)
[2023-05-24 04:46] LABS: Calcium 8.2 mg/dL (8.7-10.4); Chloride 99 mmol/L (98-107); Potassium 4.7 mmol/L (3.5-5.1); Sodium 135 mmol/L (136-145)
[2023-05-24 04:47] LABS: Anion Gap 11.4 (5-15); Carbon Dioxide 24.6 mmol/L (20-30)
[2023-05-24 04:52] LABS: BUN/Creatinine Ratio 5.5 (10.0-20.0); Glucose 162 mg/dL (74-106)
[2023-05-24 05:20] LABS: Blood Urea Nitrogen 38 mg/dL (9-23)
[2023-05-24] MEDS: CALCIUM ACETATE 667 MG CAP NG SCH ×3 (05:58→20:13)
[2023-05-24] MEDS: ACCU-CHEK COMFORT CURVE STRIP VI SCH ×4 (06:16→20:05)
[2023-05-24] MEDS: InsuLIN REG 1unit/0.01ml Soln (100units/ml) SC SCH ×4 (06:16→20:04)
[2023-05-24] MEDS: ALPRAZolam 0.5 MG TAB NG SCH ×2 (09:58→20:13)
[2023-05-24] MEDS: PANTOPRAZOLE 40 MG/10 ML VIAL INJ IV SCH (09:58)
[2023-05-24] MEDS: CEFEPIME 1GM/ 50ML 50 ML IV SCH (09:58)
[2023-05-24] MEDS: METOPROLOL SUCCINATE XL 50 MG TAB PO SCH (09:58)
[2023-05-24] MEDS: DOCUSATE ORAL LIQUID 100 MG/10 ML UD GT SCH ×2 (09:59→20:13)
[2023-05-24] MEDS: MICAFUNGIN SODIUM 100 MG in SODIUM CHL 0.9% 100 ML IV SCH (10:39)
[2023-05-24] MEDS: NOREPINEPHRINE 8 MG/250ML KIT 250 ML IV SCH (15:46)
[2023-05-24] MEDS ORDERED: BUMETANIDE 2.5mg/10ml (0.25 mg/ml) INJ IV ONE (17:15)
[2023-05-24] MEDS: ATORVASTATIN 20 MG TAB PO SCH (20:13)
[2023-05-25] VITALS (80 sets, daily range): BP systolic 133–169; BP diastolic 74–99; PULSE 87–120; RESP 12–38; TEMP 98.3–99.1; O2SAT 86–100
[2023-05-25] MEDS: ALBUTEROL SULF 2.5 MG/0.5ML(0.5%) NEB SOLN NEB PRN ×4 (00:40→18:14)
[2023-05-25] MEDS: ACETYLCYSTEINE 10 %(100MG/ML) SOL 4ML IN SCH ×4 (00:40→18:15)
[2023-05-25] MEDS: LINEZOLID 600MG/300ML 300 ML IV SCH ×2 (02:05→13:56)
[2023-05-25] MEDS: ACCU-CHEK COMFORT CURVE STRIP VI SCH ×4 (05:28→21:39)
[2023-05-25] MEDS: HYDROcodone-ACET 5/325MG TAB PO PRN ×3 (05:31→19:34)
[2023-05-25] MEDS: CALCIUM ACETATE 667 MG CAP NG SCH ×3 (05:31→21:39)
[2023-05-25] MEDS: InsuLIN REG 1unit/0.01ml Soln (100units/ml) SC SCH ×4 (05:34→21:45)
[2023-05-25 06:01] LABS: Anion Gap 13.3 (5-15); Calcium 7.6 mg/dL (8.5-10.1); Carbon Dioxide 23.7 mmol/L (20-30); Chloride 99 mmol/L (98-107); Potassium 4.7 mmol/L (3.5-5.1); Sodium 136 mmol/L (136-145)
[2023-05-25 06:06] LABS: Glucose 167 mg/dL (74-106)
[2023-05-25 06:07] LABS: BUN/Creatinine Ratio 6.8 (10.0-20.0)
[2023-05-25 06:21] LABS: Basophils # (auto) 0.1 10 ^3/uL (0-0.2); Basophils % (auto) 0.8 % (0.0-2.0); Eosinophils # (auto) 0.2 10 ^3/uL (0-0.8); Eosinophils % (auto) 2.5 % (0.0-7.0); Hematocrit 26.6 % (41.0-53.0); Hemoglobin 8.9 g/dL (13.5-17.5); Lymphocytes # (auto) 0.7 10 ^3/uL (0.4-5.4); Lymphocytes % (auto) 8.2 % (10.0-50.0); Mean Corpuscular Hgb Conc. 33.6 g/dL (32.0-36.0); Mean Corpuscular Volume 92.1 fL (80.0-100.0); Monocytes % (auto) 11.2 % (0.0-12.0); Neutrophils # (auto) 6.8 10 ^3/uL (1.6-8.6); Neutrophils % (auto) 77.3 % (37.0-80.0); Red Blood Cells 2.89 10^6/uL (4.5-5.90); Red Cell Distribution Width 14.7 % (11.8-14.3); White Blood Cell 8.8 10^3/uL (4.4-10.8)
[2023-05-25 06:49] LABS: Blood Urea Nitrogen 51 mg/dL (9-23)
[2023-05-25] MEDS ORDERED: SODIUM CHL 0.9% 1000 ML BAG XX ONE (07:00)
[2023-05-25] MEDS: DOCUSATE ORAL LIQUID 100 MG/10 ML UD GT SCH ×2 (07:07→21:39)
[2023-05-25] MEDS: METOPROLOL SUCCINATE XL 50 MG TAB PO SCH (07:33)
[2023-05-25] MEDS: CEFEPIME 1GM/ 50ML 50 ML IV SCH (07:43)
[2023-05-25] MEDS: ALPRAZolam 0.5 MG TAB NG SCH ×2 (07:43→21:38)
[2023-05-25] MEDS: PANTOPRAZOLE 40 MG/10 ML VIAL INJ IV SCH (07:43)
[2023-05-25] MEDS: MICAFUNGIN SODIUM 100 MG in SODIUM CHL 0.9% 100 ML IV SCH (09:41)
[2023-05-25] MEDS: NOREPINEPHRINE 8 MG/250ML KIT 250 ML IV SCH (10:54)
[2023-05-25] MEDS: LORazepam 2MG/ML-1ML VIAL IV PRN (17:12)
[2023-05-25] MEDS ORDERED: BUMETANIDE 2.5mg/10ml (0.25 mg/ml) INJ IV ONE (17:30)
[2023-05-25] MEDS ORDERED: metOLazone 5 MG TAB PO ONE (17:30)
[2023-05-25] MEDS: ATORVASTATIN 20 MG TAB PO SCH (21:39)
[2023-05-26] VITALS (51 sets, daily range): BP systolic 121–159; BP diastolic 66–91; PULSE 91–134; RESP 17–33; TEMP 97.7–98.3; O2SAT 91–100
[2023-05-26] MEDS: ALBUTEROL SULF 2.5 MG/0.5ML(0.5%) NEB SOLN NEB PRN ×4 (00:23→18:24)
[2023-05-26] MEDS: ACETYLCYSTEINE 10 %(100MG/ML) SOL 4ML IN SCH ×4 (00:23→18:24)
[2023-05-26] MEDS: LINEZOLID 600MG/300ML 300 ML IV SCH ×2 (01:48→14:41)
[2023-05-26 05:51] LABS: Chloride 100 mmol/L (98-107); Potassium 4.5 mmol/L (3.5-5.1); Sodium 137 mmol/L (136-145)
[2023-05-26 05:53] LABS: Calcium 7.6 mg/dL (8.7-10.4)
[2023-05-26 05:57] LABS: Glucose 144 mg/dL (74-106)
[2023-05-26 05:58] LABS: BUN/Creatinine Ratio 7.2 (10.0-20.0); Blood Urea Nitrogen 55 mg/dL (9-23)
[2023-05-26] MEDS: CALCIUM ACETATE 667 MG CAP NG SCH ×3 (05:58→21:24)
[2023-05-26] MEDS: HYDROcodone-ACET 5/325MG TAB PO PRN (06:04)
[2023-05-26] MEDS: ACCU-CHEK COMFORT CURVE STRIP VI SCH ×4 (06:07→22:01)
[2023-05-26] MEDS: InsuLIN REG 1unit/0.01ml Soln (100units/ml) SC SCH ×4 (06:26→22:02)
[2023-05-26] MEDS ORDERED: SODIUM CHL 0.9% 1000 ML BAG XX ONE (07:00)
[2023-05-26] MEDS: DOCUSATE ORAL LIQUID 100 MG/10 ML UD GT SCH ×2 (07:13→21:27)
[2023-05-26] MEDS: MICAFUNGIN SODIUM 100 MG in SODIUM CHL 0.9% 100 ML IV SCH (08:12)
[2023-05-26] MEDS: CEFEPIME 1GM/ 50ML 50 ML IV SCH (08:12)
[2023-05-26] MEDS: PANTOPRAZOLE 40 MG/10 ML VIAL INJ IV SCH (08:14)
[2023-05-26] MEDS: METOPROLOL SUCCINATE XL 50 MG TAB PO SCH ×2 (09:25→17:26)
[2023-05-26] MEDS: ALPRAZolam 0.5 MG TAB NG SCH ×2 (09:28→21:23)
[2023-05-26 10:04] LABS: INR 1.8 (0.9-1.15); Partial Thromboplastin Time 46.4 SEC (24.5-34.5); Prothrombin Time 18.2 sec (9.3-11.8)
[2023-05-26] MEDS: DOPamine 1600MCG/ML D5W 250 ML IV SCH (10:43)
[2023-05-26] MEDS ORDERED: HYDROmorphone HCL 2 MG/ML VL/or syr ONE (13:08)
[2023-05-26] MEDS ORDERED: fentaNYL CITRATE 100 MCG/2 ML VL ONE (13:18)
[2023-05-26] MEDS ORDERED: MIDAZOLAM HCL 2MG/2ML 2ml VIAL (1mg/ml) ONE (13:19)
[2023-05-26] MEDS ORDERED: LIDOCAINE 2%HCL (LOCAL ANESTH.) INJ 20ML MDV ONE (13:21)
[2023-05-26] MEDS ORDERED: ceFAZolin 1GM VL ONE (13:37)
[2023-05-26] MEDS ORDERED: ceFAZolin 1GM/50ML 50 ML IV ONE (13:43)
[2023-05-26] MEDS ORDERED: HEPARIN 1,000 UNITS/ml 1ML VIAL ONE (13:58)
[2023-05-26] MEDS: NOREPINEPHRINE 8 MG/250ML KIT 250 ML IV SCH (14:37)
[2023-05-26] MEDS ORDERED: EPOETIN ALFA-EPBX 10,000 UNIT/1ML VIAL SC ONE (21:00)
[2023-05-26] MEDS: ATORVASTATIN 20 MG TAB PO SCH (21:24)
[2023-05-27] VITALS (55 sets, daily range): BP systolic 121–152; BP diastolic 71–93; PULSE 93–124; RESP 13–30; TEMP 97.6–98.8; O2SAT 92–100
[2023-05-27] MEDS: ACETYLCYSTEINE 10 %(100MG/ML) SOL 4ML IN SCH ×4 (00:12→18:21)
[2023-05-27] MEDS: ALBUTEROL SULF 2.5 MG/0.5ML(0.5%) NEB SOLN NEB PRN ×4 (00:12→18:21)
[2023-05-27] MEDS: LORazepam 2MG/ML-1ML VIAL IV PRN (01:30)
[2023-05-27] MEDS: LINEZOLID 600MG/300ML 300 ML IV SCH ×2 (01:31→16:30)
[2023-05-27 05:16] LABS: Alanine Aminotransferase 22 U/L (7-40); Albumin 3.8 g/dL (3.2-4.8); Alkaline Phosphatase 105 U/L (46-116); Anion Gap 12.8 (5-15); Aspartate Aminotransferase 18 U/L (13-40); BUN/Creatinine Ratio 7.9 (10.0-20.0); Blood Urea Nitrogen 60 mg/dL (9-23); Calcium 7.8 mg/dL (8.5-10.1); Carbon Dioxide 24.2 mmol/L (20-30); Chloride 98 mmol/L (98-107); Glucose 129 mg/dL (74-106); Potassium 4.6 mmol/L (3.5-5.1); Sodium 135 mmol/L (136-145)
[2023-05-27 05:17] LABS: Bilirubin, Total 0.2 mg/dL (0.2-1.0); Total Protein 7.7 g/dL (5.7-8.2)
[2023-05-27 05:19] LABS: Basophils # (auto) 0.1 10 ^3/uL (0-0.2); Basophils % (auto) 1.2 % (0.0-2.0); Eosinophils # (auto) 0.3 10 ^3/uL (0-0.8); Eosinophils % (auto) 3.9 % (0.0-7.0); Hematocrit 26.6 % (41.0-53.0); Hemoglobin 8.5 g/dL (13.5-17.5); Lymphocytes # (auto) 0.8 10 ^3/uL (0.4-5.4); Lymphocytes % (auto) 12.4 % (10.0-50.0); Mean Corpuscular Hemoglobin 29.4 pg (28.0-32.0); Mean Corpuscular Hgb Conc. 32.1 g/dL (32.0-36.0); Mean Corpuscular Volume 91.5 fL (80.0-100.0); Monocytes # (auto) 1.1 10 ^3/uL (0-1.3); Monocytes % (auto) 16.5 % (0.0-12.0); Neutrophils # (auto) 4.3 10 ^3/uL (1.6-8.6); Nucleated Red Blood Cells % 0.1 %; Red Blood Cells 2.91 10^6/uL (4.5-5.90); Red Cell Distribution Width 15.1 % (11.8-14.3); White Blood Cell 6.5 10^3/uL (4.4-10.8)
[2023-05-27] MEDS: CALCIUM ACETATE 667 MG CAP NG SCH ×4 (05:54→18:27)
[2023-05-27] MEDS: ACCU-CHEK COMFORT CURVE STRIP VI SCH ×4 (06:47→22:19)
[2023-05-27] MEDS: InsuLIN REG 1unit/0.01ml Soln (100units/ml) SC SCH ×4 (07:24→22:00)
[2023-05-27] MEDS: MORPHINE SULFATE INJ 2 MG/ml SYRG IV PRN ×3 (07:32→18:39)
[2023-05-27] MEDS: CEFEPIME 1GM/ 50ML 50 ML IV SCH (09:51)
[2023-05-27] MEDS: ALPRAZolam 0.5 MG TAB NG SCH ×2 (09:51→22:12)
[2023-05-27] MEDS: PANTOPRAZOLE 40 MG/10 ML VIAL INJ IV SCH (09:51)
[2023-05-27] MEDS: METOPROLOL SUCCINATE XL 50 MG TAB PO SCH (09:52)
[2023-05-27] MEDS: DOCUSATE ORAL LIQUID 100 MG/10 ML UD GT SCH ×2 (10:00→22:00)
[2023-05-27] MEDS: DOPamine 1600MCG/ML D5W 250 ML IV SCH (10:30)
[2023-05-27] MEDS: MICAFUNGIN SODIUM 100 MG in SODIUM CHL 0.9% 100 ML IV SCH (13:46)
[2023-05-27] MEDS: NOREPINEPHRINE 8 MG/250ML KIT 250 ML IV SCH (16:00)
[2023-05-27] MEDS: ATORVASTATIN 20 MG TAB PO SCH (22:12)
[2023-05-28] VITALS (25 sets, daily range): BP systolic 106–149; BP diastolic 65–100; PULSE 93–125; RESP 14–26; TEMP 97.6–99.1; O2SAT 92–100
[2023-05-28] MEDS: ALBUTEROL SULF 2.5 MG/0.5ML(0.5%) NEB SOLN NEB PRN ×5 (00:18→17:51)
[2023-05-28] MEDS: ACETYLCYSTEINE 10 %(100MG/ML) SOL 4ML IN SCH ×5 (00:18→17:51)
[2023-05-28] MEDS: LINEZOLID 600MG/300ML 300 ML IV SCH (02:03)
[2023-05-28] MEDS: TEMAZEPAM 15 MG CAP PO PRN ×2 (02:03→21:43)
[2023-05-28 05:24] LABS: Anion Gap 10.7 (5-15); Carbon Dioxide 24.3 mmol/L (20-30); Chloride 98 mmol/L (98-107); Potassium 4.6 mmol/L (3.5-5.1); Sodium 133 mmol/L (136-145)
[2023-05-28 05:25] LABS: Calcium 8.1 mg/dL (8.7-10.4)
[2023-05-28 05:30] LABS: BUN/Creatinine Ratio 8.3 (10.0-20.0); Blood Urea Nitrogen 66 mg/dL (9-23); Glucose 186 mg/dL (74-106)
[2023-05-28 06:17] LABS: Basophils # (auto) 0.1 10 ^3/uL (0-0.2); Basophils % (auto) 1.2 % (0.0-2.0); Eosinophils # (auto) 0.4 10 ^3/uL (0-0.8); Eosinophils % (auto) 6.1 % (0.0-7.0); Hematocrit 26.1 % (41.0-53.0); Hemoglobin 8.6 g/dL (13.5-17.5); Lymphocytes % (auto) 15.2 % (10.0-50.0); Mean Corpuscular Hemoglobin 30.6 pg (28.0-32.0); Mean Corpuscular Hgb Conc. 33.1 g/dL (32.0-36.0); Mean Corpuscular Volume 92.5 fL (80.0-100.0); Monocytes % (auto) 14.8 % (0.0-12.0); Neutrophils # (auto) 4.1 10 ^3/uL (1.6-8.6); Neutrophils % (auto) 62.7 % (37.0-80.0); Red Blood Cells 2.82 10^6/uL (4.5-5.90); Red Cell Distribution Width 14.4 % (11.8-14.3); White Blood Cell 6.5 10^3/uL (4.4-10.8)
[2023-05-28] MEDS: ACCU-CHEK COMFORT CURVE STRIP VI SCH ×4 (06:18→21:51)
[2023-05-28] MEDS: InsuLIN REG 1unit/0.01ml Soln (100units/ml) SC SCH ×4 (06:19→21:51)
[2023-05-28] MEDS ORDERED: SODIUM CHL 0.9% 1000 ML BAG XX ONE (07:00)
[2023-05-28] MEDS: CALCIUM ACETATE 667 MG CAP NG SCH (09:11)
[2023-05-28] MEDS: MICAFUNGIN SODIUM 100 MG in SODIUM CHL 0.9% 100 ML IV SCH (09:56)
[2023-05-28] MEDS: DOCUSATE ORAL LIQUID 100 MG/10 ML UD GT SCH ×2 (10:00→21:47)
[2023-05-28] MEDS: METOPROLOL SUCCINATE XL 50 MG TAB PO SCH ×2 (10:00→23:17)
[2023-05-28] MEDS: ALPRAZolam 0.5 MG TAB NG SCH ×2 (10:01→21:43)
[2023-05-28] MEDS: PANTOPRAZOLE 40 MG/10 ML VIAL INJ IV SCH (10:07)
[2023-05-28] MEDS: CEFEPIME 1GM/ 50ML 50 ML IV SCH (11:07)
[2023-05-28] MEDS ORDERED: METOPROLOL TARTRATE 1MG/1ML-5ML VIAL IV ONE (16:45)
[2023-05-28] MEDS: CALCIUM ACETATE 667 MG CAP PO SCH (18:09)
[2023-05-28] MEDS ORDERED: EPOETIN ALFA-EPBX 10,000 UNIT/1ML VIAL SC ONE (21:00)
[2023-05-28] MEDS: MORPHINE SULFATE INJ 2 MG/ml SYRG IV PRN (21:42)
[2023-05-28] MEDS: ATORVASTATIN 20 MG TAB PO SCH (21:43)
[2023-05-28] MEDS ORDERED: PRAZOSIN HCL 1 MG CAP PO ONE (22:00)
[2023-05-28] MEDS ORDERED: METOPROLOL SUCCINATE XL 50 MG TAB PO ONE (23:13)
[2023-05-29] VITALS (15 sets, daily range): BP systolic 110–148; BP diastolic 62–93; PULSE 94–126; RESP 16–20; TEMP 98.2–98.7; O2SAT 94–100
[2023-05-29 06:09] LABS: Basophils # (auto) 0.1 10 ^3/uL (0-0.2); Basophils % (auto) 1.9 % (0.0-2.0); Eosinophils # (auto) 0.3 10 ^3/uL (0-0.8); Eosinophils % (auto) 4.9 % (0.0-7.0); Hematocrit 29.4 % (41.0-53.0); Hemoglobin 9.3 g/dL (13.5-17.5); Lymphocytes # (auto) 0.9 10 ^3/uL (0.4-5.4); Lymphocytes % (auto) 17.5 % (10.0-50.0); Mean Corpuscular Hemoglobin 29.3 pg (28.0-32.0); Mean Corpuscular Hgb Conc. 31.7 g/dL (32.0-36.0); Mean Corpuscular Volume 92.2 fL (80.0-100.0); Monocytes # (auto) 0.9 10 ^3/uL (0-1.3); Monocytes % (auto) 16.4 % (0.0-12.0); Neutrophils # (auto) 3.2 10 ^3/uL (1.6-8.6); Neutrophils % (auto) 59.3 % (37.0-80.0); Nucleated Red Blood Cells % 0.1 %; Red Blood Cells 3.19 10^6/uL (4.5-5.90); Red Cell Distribution Width 14.9 % (11.8-14.3); White Blood Cell 5.4 10^3/uL (4.4-10.8)
[2023-05-29 06:20] LABS: Anion Gap 13.3 (5-15); Carbon Dioxide 23.7 mmol/L (20-30); Chloride 98 mmol/L (98-107); Potassium 4.3 mmol/L (3.5-5.1); Sodium 135 mmol/L (136-145)
[2023-05-29] MEDS: InsuLIN REG 1unit/0.01ml Soln (100units/ml) SC SCH ×2 (06:21→11:11)
[2023-05-29 06:22] LABS: Calcium 8.9 mg/dL (8.5-10.1)
[2023-05-29] MEDS: ACCU-CHEK COMFORT CURVE STRIP VI SCH ×2 (06:24→11:11)
[2023-05-29 06:27] LABS: BUN/Creatinine Ratio 7.1 (10.0-20.0); Glucose 150 mg/dL (74-106)
[2023-05-29 06:33] LABS: Blood Urea Nitrogen 42 mg/dL (9-23)
[2023-05-29] MEDS: ALBUTEROL SULF 2.5 MG/0.5ML(0.5%) NEB SOLN NEB PRN (07:18)
[2023-05-29] MEDS: ACETYLCYSTEINE 10 %(100MG/ML) SOL 4ML IN SCH ×2 (07:19)
[2023-05-29] MEDS: ALPRAZolam 0.5 MG TAB NG SCH (08:49)
[2023-05-29] MEDS: DOCUSATE ORAL LIQUID 100 MG/10 ML UD GT SCH (08:49)
[2023-05-29] MEDS: PANTOPRAZOLE 40 MG/10 ML VIAL INJ IV SCH (08:49)
[2023-05-29] MEDS: METOPROLOL SUCCINATE XL 50 MG TAB PO SCH (08:50)
[2023-05-29] MEDS: CALCIUM ACETATE 667 MG CAP PO SCH ×3 (08:50→18:25)
[2023-05-29] MEDS: HYDROcodone-ACET 5/325MG TAB PO PRN ×2 (08:50→23:05)
[2023-05-29] MEDS: DOCUSATE SOD 100 MG CAP PO SCH (23:05)
[2023-05-29] MEDS: ATORVASTATIN 20 MG TAB PO SCH (23:05)
[2023-05-29] MEDS: TEMAZEPAM 15 MG CAP PO PRN (23:06)
[2023-05-30] VITALS (12 sets, daily range): BP systolic 88–149; BP diastolic 55–93; PULSE 68–107; RESP 18–22; TEMP 97.7–98.3; O2SAT 92–99
[2023-05-30 05:45] LABS: Alanine Aminotransferase 28 U/L (7-40); Albumin 4.2 g/dL (3.2-4.8); Alkaline Phosphatase 129 U/L (46-116); Anion Gap 12.3 (5-15); BUN/Creatinine Ratio 7.8 (10.0-20.0); Calcium 9.4 mg/dL (8.7-10.4); Carbon Dioxide 24.7 mmol/L (20-30); Chloride 97 mmol/L (98-107); Glucose 151 mg/dL (74-106); Potassium 4.8 mmol/L (3.5-5.1); Sodium 134 mmol/L (136-145)
[2023-05-30 05:46] LABS: Aspartate Aminotransferase 22 U/L (13-40); Bilirubin, Total 0.3 mg/dL (0.2-1.0); Total Protein 8.5 g/dL (5.7-8.2)
[2023-05-30 05:52] LABS: Blood Urea Nitrogen 58 mg/dL (9-23)
[2023-05-30] MEDS: DOCUSATE SOD 100 MG CAP PO SCH ×2 (09:43→21:47)
[2023-05-30] MEDS: PANTOPRAZOLE 40 MG/10 ML VIAL INJ IV SCH (09:43)
[2023-05-30] MEDS: CALCIUM ACETATE 667 MG CAP PO SCH ×4 (09:43→17:51)
[2023-05-30] MEDS: METOPROLOL SUCCINATE XL 50 MG TAB PO SCH (09:45)
[2023-05-30] MEDS: HYDROcodone-ACET 5/325MG TAB PO PRN ×2 (09:46→21:47)
[2023-05-30] MEDS ORDERED: DEXTROSE (50%) 50ML SYRG IV PRN (17:00)
[2023-05-30] MEDS: ACCU-CHEK COMFORT CURVE STRIP VI SCH ×2 (17:26→22:03)
[2023-05-30] MEDS: InsuLIN REG 1unit/0.01ml Soln (100units/ml) SC SCH ×2 (17:50→21:38)
[2023-05-30 19:25] LABS: INR 1.48 (0.9-1.15); Prothrombin Time 15.1 sec (9.3-11.8)
[2023-05-30] MEDS ORDERED: FUROSEMIDE 100 MG/10ML VIAL IV ONE (20:30)
[2023-05-30] MEDS: TEMAZEPAM 15 MG CAP PO PRN (21:47)
[2023-05-30] MEDS: ATORVASTATIN 20 MG TAB PO SCH (21:47)
[2023-05-31] VITALS (23 sets, daily range): BP systolic 112–159; BP diastolic 66–96; PULSE 76–130; RESP 16–28; TEMP 97–99.9; O2SAT 93–99
[2023-05-31] MEDS: HYDROcodone-ACET 5/325MG TAB PO PRN (03:56)
[2023-05-31] MEDS ORDERED: ACETAMINOPHEN 325 MG TAB PO PRN (05:15)
[2023-05-31 05:27] LABS: Basophils # (auto) 0.1 10 ^3/uL (0-0.2); Basophils % (auto) 1.5 % (0.0-2.0); Eosinophils # (auto) 0.4 10 ^3/uL (0-0.8); Eosinophils % (auto) 5.7 % (0.0-7.0); Hematocrit 29.7 % (41.0-53.0); Hemoglobin 9.5 g/dL (13.5-17.5); Lymphocytes # (auto) 1.6 10 ^3/uL (0.4-5.4); Lymphocytes % (auto) 20.6 % (10.0-50.0); Mean Corpuscular Hemoglobin 29.2 pg (28.0-32.0); Mean Corpuscular Hgb Conc. 31.9 g/dL (32.0-36.0); Mean Corpuscular Volume 91.6 fL (80.0-100.0); Monocytes # (auto) 1.3 10 ^3/uL (0-1.3); Monocytes % (auto) 17.5 % (0.0-12.0); Neutrophils # (auto) 4.2 10 ^3/uL (1.6-8.6); Neutrophils % (auto) 54.7 % (37.0-80.0); Nucleated Red Blood Cells % 0.2 %; Red Blood Cells 3.24 10^6/uL (4.5-5.90); Red Cell Distribution Width 15.2 % (11.8-14.3); White Blood Cell 7.6 10^3/uL (4.4-10.8)
[2023-05-31 05:42] LABS: Alanine Aminotransferase 28 U/L (7-40); Alkaline Phosphatase 138 U/L (46-116); Anion Gap 12.2 (5-15); Aspartate Aminotransferase 19 U/L (13-40); BUN/Creatinine Ratio 8.8 (10.0-20.0); Calcium 9.5 mg/dL (8.7-10.4); Carbon Dioxide 24.8 mmol/L (20-30); Chloride 97 mmol/L (98-107); Glucose 155 mg/dL (74-106); Potassium 5.2 mmol/L (3.5-5.1); Sodium 134 mmol/L (136-145)
[2023-05-31 05:43] LABS: Bilirubin, Total 0.3 mg/dL (0.2-1.0); Total Protein 8.1 g/dL (5.7-8.2)
[2023-05-31 06:09] LABS: Blood Urea Nitrogen 74 mg/dL (9-23)
[2023-05-31] MEDS: InsuLIN REG 1unit/0.01ml Soln (100units/ml) SC SCH ×4 (06:25→22:24)
[2023-05-31] MEDS: FUROSEMIDE 100 MG/10ML VIAL IV SCH ×2 (06:30→17:55)
[2023-05-31] MEDS: ACCU-CHEK COMFORT CURVE STRIP VI SCH ×4 (06:38→22:24)
[2023-05-31] MEDS ORDERED: SODIUM CHL 0.9% 1000 ML BAG XX ONE (07:00)
[2023-05-31] MEDS: CALCIUM ACETATE 667 MG CAP PO SCH ×3 (08:00→17:54)
[2023-05-31] MEDS: LORazepam 2MG/ML-1ML VIAL IV PRN (10:26)
[2023-05-31] MEDS ORDERED: LORazepam 2MG/ML-1ML VIAL IV ONE (11:05)
[2023-05-31] MEDS: DOCUSATE SOD 100 MG CAP PO SCH ×2 (11:40→22:00)
[2023-05-31] MEDS: PANTOPRAZOLE 40 MG/10 ML VIAL INJ IV SCH (11:40)
[2023-05-31] MEDS: METOPROLOL SUCCINATE XL 50 MG TAB PO SCH (11:40)
[2023-05-31] MEDS ORDERED: ALBUTEROL SULF 2.5 MG/0.5ML(0.5%) NEB SOLN NEB PRN (12:30)
[2023-05-31] MEDS ORDERED: methylPREDNISolone SOD SUCC 40 MG/ML VL IV ONE (12:30)
[2023-05-31] MEDS: methylPREDNISolone SOD SUCC 40 MG/ML VL IV SCH (12:30)
[2023-05-31] MEDS ORDERED: MICAFUNGIN SODIUM 100 MG in SODIUM CHL 0.9% 100 ML IV ONE (12:30)
[2023-05-31] MEDS: MEROPENEM 500MG IVPB 50 ML IV SCH (15:44)
[2023-05-31] MEDS: ALBUTEROL SULF 2.5 MG/0.5ML(0.5%) NEB SOLN NEB SCH (20:30)
[2023-05-31] MEDS: IPRATROPIUM BROM 0.5 MG/2.5ML INH SOL NEB SCH (20:30)
[2023-05-31] MEDS ORDERED: EPOETIN ALFA-EPBX 4,000 UNIT/ML VIAL SC ONE (21:00)
[2023-05-31] MEDS ORDERED: MEROPENEM 500MG IVPB 50 ML IV SCH (22:00)
[2023-05-31] MEDS: TEMAZEPAM 15 MG CAP PO PRN (22:17)
[2023-05-31] MEDS: ATORVASTATIN 20 MG TAB PO SCH (22:17)
[2023-05-31] MEDS: LINEZOLID 600MG/300ML 300 ML IV SCH (22:18)
[2023-05-31] MEDS: HEPARIN SODIUM (PORCINE) 5000 UNITS/ML 1ML VIAL SC SCH (22:22)
[2023-06-01] VITALS (27 sets, daily range): BP systolic 126–151; BP diastolic 69–87; PULSE 87–110; RESP 15–28; TEMP 97.4–98.7; O2SAT 90–98
[2023-06-01] MEDS: IPRATROPIUM BROM 0.5 MG/2.5ML INH SOL NEB SCH ×4 (01:01→17:57)
[2023-06-01] MEDS: ALBUTEROL SULF 2.5 MG/0.5ML(0.5%) NEB SOLN NEB SCH ×4 (01:01→17:57)
[2023-06-01] MEDS: LORazepam 2MG/ML-1ML VIAL IV PRN (01:05)
[2023-06-01] MEDS: HYDROcodone-ACET 5/325MG TAB PO PRN ×3 (01:05→22:11)
[2023-06-01] MEDS: methylPREDNISolone SOD SUCC 40 MG/ML VL IV SCH ×2 (01:16→12:17)
[2023-06-01] MEDS: MEROPENEM 500MG IVPB 50 ML IV SCH ×2 (03:45→13:42)
[2023-06-01] MEDS: FUROSEMIDE 100 MG/10ML VIAL IV SCH ×2 (06:00→18:50)
[2023-06-01] MEDS: ACCU-CHEK COMFORT CURVE STRIP VI SCH ×4 (07:00→22:17)
[2023-06-01] MEDS: InsuLIN REG 1unit/0.01ml Soln (100units/ml) SC SCH ×4 (07:00→22:16)
[2023-06-01] MEDS: CALCIUM ACETATE 667 MG CAP PO SCH ×3 (07:55→18:49)
[2023-06-01 08:08] LABS: Basophils # (auto) 0.1 10 ^3/uL (0-0.2); Basophils % (auto) 0.9 % (0.0-2.0); Eosinophils # (auto) 0 10 ^3/uL (0-0.8); Eosinophils % (auto) 0.5 % (0.0-7.0); Hematocrit 30.7 % (41.0-53.0); Lymphocytes # (auto) 1.2 10 ^3/uL (0.4-5.4); Lymphocytes % (auto) 14.3 % (10.0-50.0); Mean Corpuscular Hgb Conc. 32.5 g/dL (32.0-36.0); Mean Corpuscular Volume 92.3 fL (80.0-100.0); Monocytes # (auto) 0.6 10 ^3/uL (0-1.3); Monocytes % (auto) 7.6 % (0.0-12.0); Neutrophils # (auto) 6.2 10 ^3/uL (1.6-8.6); Neutrophils % (auto) 76.7 % (37.0-80.0); Nucleated Red Blood Cells % 0.1 %; Red Blood Cells 3.33 10^6/uL (4.5-5.90); Red Cell Distribution Width 15.2 % (11.8-14.3); White Blood Cell 8.1 10^3/uL (4.4-10.8)
[2023-06-01 08:18] LABS: Anion Gap 14.9 (5-15); Carbon Dioxide 22.1 mmol/L (20-30); Chloride 96 mmol/L (98-107); Potassium 5.2 mmol/L (3.5-5.1); Sodium 133 mmol/L (136-145)
[2023-06-01 08:19] LABS: Calcium 9.5 mg/dL (8.5-10.1)
[2023-06-01 08:24] LABS: BUN/Creatinine Ratio 8.3 (10.0-20.0); Glucose 210 mg/dL (74-106)
[2023-06-01 08:31] LABS: Blood Urea Nitrogen 50 mg/dL (9-23)
[2023-06-01] MEDS: PANTOPRAZOLE 40 MG/10 ML VIAL INJ IV SCH (09:50)
[2023-06-01] MEDS: DOCUSATE SOD 100 MG CAP PO SCH ×2 (09:51→22:10)
[2023-06-01] MEDS: METOPROLOL SUCCINATE XL 50 MG TAB PO SCH (09:51)
[2023-06-01] MEDS: LINEZOLID 600MG/300ML 300 ML IV SCH ×2 (09:51→22:10)
[2023-06-01] MEDS: HEPARIN SODIUM (PORCINE) 5000 UNITS/ML 1ML VIAL SC SCH ×2 (10:29→22:15)
[2023-06-01] MEDS: MICAFUNGIN SODIUM 100 MG in SODIUM CHL 0.9% 100 ML IV SCH (12:17)
[2023-06-01] MEDS ORDERED: METO-6 PO ×2 (16:09)
[2023-06-01] MEDS ORDERED: TEMA15CA2 PO ×2 (16:09)
[2023-06-01] MEDS ORDERED: FURO1TAB31 PO ×2 (16:09)
[2023-06-01] MEDS ORDERED: CALC667C PO ×2 (16:12)
[2023-06-01] MEDS: ATORVASTATIN 20 MG TAB PO SCH (22:10)
[2023-06-01] MEDS: TEMAZEPAM 15 MG CAP PO PRN (22:17)
[2023-06-02] VITALS (29 sets, daily range): BP systolic 122–158; BP diastolic 55–83; PULSE 80–105; RESP 16–25; TEMP 97.7–98.2; O2SAT 89–98
[2023-06-02] MEDS: IPRATROPIUM BROM 0.5 MG/2.5ML INH SOL NEB SCH ×4 (00:14→18:25)
[2023-06-02] MEDS: ALBUTEROL SULF 2.5 MG/0.5ML(0.5%) NEB SOLN NEB SCH ×4 (00:14→18:25)
[2023-06-02] MEDS: methylPREDNISolone SOD SUCC 40 MG/ML VL IV SCH ×2 (01:09→12:30)
[2023-06-02] MEDS: MEROPENEM 500MG IVPB 50 ML IV SCH ×2 (03:01→14:45)
[2023-06-02] MEDS: HYDROcodone-ACET 5/325MG TAB PO PRN ×2 (04:16→13:04)
[2023-06-02 06:04] LABS: Basophils # (auto) 0 10 ^3/uL (0-0.2); Basophils % (auto) 0.2 % (0.0-2.0); Eosinophils # (auto) 0 10 ^3/uL (0-0.8); Eosinophils % (auto) 0.6 % (0.0-7.0); Hematocrit 25.4 % (41.0-53.0); Hemoglobin 8.6 g/dL (13.5-17.5); Lymphocytes % (auto) 12.4 % (10.0-50.0); Mean Corpuscular Hemoglobin 30.9 pg (28.0-32.0); Monocytes % (auto) 12.8 % (0.0-12.0); Neutrophils # (auto) 5.7 10 ^3/uL (1.6-8.6); Red Cell Distribution Width 14.8 % (11.8-14.3); White Blood Cell 7.7 10^3/uL (4.4-10.8)
[2023-06-02 06:11] LABS: Anion Gap 12.4 (5-15); Carbon Dioxide 24.6 mmol/L (20-30); Chloride 93 mmol/L (98-107); Potassium 4.9 mmol/L (3.5-5.1); Sodium 130 mmol/L (136-145)
[2023-06-02 06:12] LABS: Calcium 9.7 mg/dL (8.7-10.4)
[2023-06-02 06:17] LABS: Glucose 156 mg/dL (74-106)
[2023-06-02 06:23] LABS: Blood Urea Nitrogen 66 mg/dL (9-23)
[2023-06-02] MEDS: ACCU-CHEK COMFORT CURVE STRIP VI SCH ×3 (06:30→17:07)
[2023-06-02] MEDS: FUROSEMIDE 100 MG/10ML VIAL IV SCH ×2 (06:30→17:37)
[2023-06-02] MEDS: InsuLIN REG 1unit/0.01ml Soln (100units/ml) SC SCH ×3 (06:45→17:00)
[2023-06-02] MEDS ORDERED: SODIUM CHL 0.9% 1000 ML BAG XX ONE (08:00)
[2023-06-02] MEDS: PANTOPRAZOLE 40 MG/10 ML VIAL INJ IV SCH (08:11)
[2023-06-02] MEDS: CALCIUM ACETATE 667 MG CAP PO SCH ×3 (08:11→18:08)
[2023-06-02] MEDS: MICAFUNGIN SODIUM 100 MG in SODIUM CHL 0.9% 100 ML IV SCH ×2 (08:12→09:50)
[2023-06-02] MEDS: DOCUSATE SOD 100 MG CAP PO SCH (08:49)
[2023-06-02] MEDS: HEPARIN SODIUM (PORCINE) 5000 UNITS/ML 1ML VIAL SC SCH (09:27)
[2023-06-02] MEDS: LINEZOLID 600MG/300ML 300 ML IV SCH (09:50)
[2023-06-02] MEDS: METOPROLOL SUCCINATE XL 50 MG TAB PO SCH (13:00)
[2023-06-02] MEDS ORDERED: FURO1TAB31 PO (16:12)
[2023-06-02] MEDS ORDERED: SODIUM CHLORIDE 0.9% 500 ML IV ONE (16:45)
[2023-06-02] MEDS ORDERED: EPOETIN ALFA-EPBX 4,000 UNIT/ML VIAL SC ONE (21:00)
== END 2023-06-02 18:49 | disposition home or self-care (01) | DRG 870 ==
LOC: TELE-CENTR 21:38 → CENTRAL 05-02 13:59 → TELE-CENTR 05-07 06:06 → ICU WEST 05-07 15:58 → DOU IN ICU 05-24 15:35 → TELE-WESTW 05-28 12:20 → DOU IN ICU 05-31 14:15
PROVIDERS: ADMIT Nurse Practitioner Acute Care; ATTEND Nurse Practitioner Acute Care
PROC: 079T3ZX Drainage of Bone Marrow, Percutaneous Approach, Diagnostic (ICD-10-PCS; 2023-05-06)
PROC: 5A1955Z Respiratory Ventilation, Greater than 96 Consecutive Hours (ICD-10-PCS; principal; 2023-05-07)
PROC: 0BH17EZ Insertion of Endotracheal Airway into Trachea, Via Natural or Artificial Opening (ICD-10-PCS; 2023-05-07)
PROC: 02HV33Z Insertion of Infusion Device into Superior Vena Cava, Percutaneous Approach (ICD-10-PCS; 2023-05-07)
PROC: 5A09357 Assistance with Respiratory Ventilation, Less than 24 Consecutive Hours, Continuous Positive Airway Pressure (ICD-10-PCS; 2023-05-07)
PROC: 05HM33Z Insertion of Infusion Device into Right Internal Jugular Vein, Percutaneous Approach (ICD-10-PCS; 2023-05-07)
PROC: 05HN33Z Insertion of Infusion Device into Left Internal Jugular Vein, Percutaneous Approach (ICD-10-PCS; 2023-05-09)
PROC: B544ZZA Ultrasonography of Left Jugular Veins, Guidance (ICD-10-PCS; 2023-05-09)
PROC: 5A1D70Z Performance of Urinary Filtration, Intermittent, Less than 6 Hours Per Day (ICD-10-PCS; 2023-05-09)
PROC: 5A1D70Z Performance of Urinary Filtration, Intermittent, Less than 6 Hours Per Day (ICD-10-PCS; 2023-05-11)
PROC: 5A1D70Z Performance of Urinary Filtration, Intermittent, Less than 6 Hours Per Day (ICD-10-PCS; 2023-05-13)
PROC: 5A1D70Z Performance of Urinary Filtration, Intermittent, Less than 6 Hours Per Day (ICD-10-PCS; 2023-05-15)
PROC: 5A1D70Z Performance of Urinary Filtration, Intermittent, Less than 6 Hours Per Day (ICD-10-PCS; 2023-05-17)
PROC: 5A1D70Z Performance of Urinary Filtration, Intermittent, Less than 6 Hours Per Day (ICD-10-PCS; 2023-05-20)
PROC: 30233N1 Transfusion of Nonautologous Red Blood Cells into Peripheral Vein, Percutaneous Approach (ICD-10-PCS; 2023-05-21)
PROC: 0BDB8ZX Extraction of Left Lower Lobe Bronchus, Via Natural or Artificial Opening Endoscopic, Diagnostic (ICD-10-PCS; 2023-05-22)
PROC: 0BD68ZX Extraction of Right Lower Lobe Bronchus, Via Natural or Artificial Opening Endoscopic, Diagnostic (ICD-10-PCS; 2023-05-22)
PROC: 5A1D70Z Performance of Urinary Filtration, Intermittent, Less than 6 Hours Per Day (ICD-10-PCS; 2023-05-22)
PROC: 5A09357 Assistance with Respiratory Ventilation, Less than 24 Consecutive Hours, Continuous Positive Airway Pressure (ICD-10-PCS; 2023-05-23)
PROC: 5A1D70Z Performance of Urinary Filtration, Intermittent, Less than 6 Hours Per Day (ICD-10-PCS; 2023-05-25)
PROC: 0JH63XZ Insertion of Tunneled Vascular Access Device into Chest Subcutaneous Tissue and Fascia, Percutaneous Approach (ICD-10-PCS; 2023-05-26)
PROC: 02HV33Z Insertion of Infusion Device into Superior Vena Cava, Percutaneous Approach (ICD-10-PCS; 2023-05-26)
PROC: B5181ZA Fluoroscopy of Superior Vena Cava using Low Osmolar Contrast, Guidance (ICD-10-PCS; 2023-05-26)
PROC: B548ZZA Ultrasonography of Superior Vena Cava, Guidance (ICD-10-PCS; 2023-05-26)
PROC: 5A1D70Z Performance of Urinary Filtration, Intermittent, Less than 6 Hours Per Day (ICD-10-PCS; 2023-05-26)
PROC: 5A1D70Z Performance of Urinary Filtration, Intermittent, Less than 6 Hours Per Day (ICD-10-PCS; 2023-05-28)
PROC: 5A1D70Z Performance of Urinary Filtration, Intermittent, Less than 6 Hours Per Day (ICD-10-PCS; 2023-05-31)
PROC: 5A1D70Z Performance of Urinary Filtration, Intermittent, Less than 6 Hours Per Day (ICD-10-PCS; 2023-06-02)
DX: A41.9 Sepsis, unspecified organism (principal); J96.01 Acute respiratory failure with hypoxia; N17.0 Acute kidney failure with tubular necrosis; R65.21 Severe sepsis with septic shock; J18.0 Bronchopneumonia, unspecified organism; N18.6 End stage renal disease; C90.00 Multiple myeloma not having achieved remission; J44.0 Chronic obstructive pulmonary disease with (acute) lower respiratory infection; I13.2 Hypertensive heart and chronic kidney disease with heart failure and with stage 5 chronic kidney disease, or end stage renal disease; E87.20 Acidosis, unspecified; E78.5 Hyperlipidemia, unspecified; D63.0 Anemia in neoplastic disease; E11.22 Type 2 diabetes mellitus with diabetic chronic kidney disease; E87.5 Hyperkalemia; F32.A Depression, unspecified; E55.9 Vitamin D deficiency, unspecified; R91.1 Solitary pulmonary nodule; D89.2 Hypergammaglobulinemia, unspecified; I16.0 Hypertensive urgency; F43.10 Post-traumatic stress disorder, unspecified; I50.9 Heart failure, unspecified; Z82.49 Family history of ischemic heart disease and other diseases of the circulatory system; Z87.891 Personal history of nicotine dependence; Z99.2 Dependence on renal dialysis
CPT/HCPCS: 36415; 36558; 36600; 70450; 71045; 71046; 71250; 74018; 76000; 76604; 76775; 76942; 77001; 80048; 80053; 80202; 81001; 82105; 82140; 82232; 82306; 82378; 82570; 82784; 82805; 82962; 83036; 83605; 83615; 83735; 83880; 83883; 83935; 83970; 84100; 84132; 84154; 84155; 84156; 84165; 84166; 84300; 84443; 84484; 85007; 85025; 85027; 85610; 85730; 86301; 86334; 86335; 86850; 86900; 86901; 86920; 87040; 87070; 87077; 87081; 87186; 87205; 87340; 87804; 90935; 93005; 93306; 94002; 94003; 94640; 94660; 97110; 97116; 97163; 97530; 99152; C1894; C9113; G0378; J0171; J0690; J0696; J1642; J1815; J2001; J2185; J2248; J2250; J3489; J7060; P9047; Q9956

== ENCOUNTER 2023-07-20 11:07 | Inpatient (IN) | payer OTHER ==
[~2023-07-20] VITALS: Ht 165.1 cm; Wt 66.1 kg
[2023-07-20] VITALS (11 sets, daily range): BP systolic 116–136; BP diastolic 60–72; PULSE 92–118; RESP 17–20; TEMP 97.5–98.1; O2SAT 92–100
[~2023-07-20 11:07] MED LIST changes: -AMLO1TAB22 PO; -ATOR40TA52 PO; -AZIT-81 PO; -CHLO25TA2 PO; -EMPA1TAB3 PO; +FURO1TAB31 PO; -METF-370 PO; -METO-159 PO; +ROSU1TAB14 PO; +SERT-206 PO; -VALS40TA2 PO
[2023-07-20] MEDS ORDERED: SODIUM CHL 0.9% 1000 ML BAG XX ONE (13:45)
[2023-07-20] MEDS ORDERED: SODIUM ZIRCONIUM CYCL 10 GM PAK PO ONE (14:00)
[2023-07-20] MEDS ORDERED: OXY5T PO (14:24)
[2023-07-20] MEDS ORDERED: SITA50TA PO (14:24)
[2023-07-20] MEDS ORDERED: CALC667C PO (14:24)
[2023-07-20] MEDS ORDERED: POLYPOW85 (14:24)
[2023-07-20] MEDS ORDERED: METO25TA93 PO (14:24)
[2023-07-20] MEDS ORDERED: SITA25TA3 PO (14:24)
[2023-07-20] MEDS ORDERED: AMLO1TAB23 PO (14:24)
[2023-07-20] MEDS ORDERED: SENN-105 PO (14:24)
[2023-07-20 15:28] LABS: Basophils # (auto) 0.1 10 ^3/uL (0-0.2); Eosinophils # (auto) 0 10 ^3/uL (0-0.8); Eosinophils % (auto) 0.1 % (0.0-7.0); Lymphocytes # (auto) 0.8 10 ^3/uL (0.4-5.4); Monocytes # (auto) 0.3 10 ^3/uL (0-1.3); White Blood Cell 9.7 10^3/uL (4.4-10.8)
[2023-07-20 15:29] LABS: Basophils % (auto) 1.2 % (0.0-2.0); Hematocrit 17.4 % (41.0-53.0); Lymphocytes % (auto) 8.1 % (10.0-50.0); Mean Corpuscular Hemoglobin 32.4 pg (28.0-32.0); Mean Corpuscular Hgb Conc. 33.2 g/dL (32.0-36.0); Mean Corpuscular Volume 97.6 fL (80.0-100.0); Monocytes % (auto) 2.8 % (0.0-12.0); Neutrophils # (auto) 8.6 10 ^3/uL (1.6-8.6); Neutrophils % (auto) 87.8 % (37.0-80.0); Red Blood Cells 1.78 10^6/uL (4.5-5.90); Red Cell Distribution Width 16.7 % (11.8-14.3)
[2023-07-20] MEDS ORDERED: TEMA15CA PO (15:49)
[2023-07-20 15:53] LABS: Hemoglobin 5.8 g/dL (13.5-17.5)
[2023-07-20 15:54] LABS: Magnesium 2.8 mg/dL (1.6-2.6)
[2023-07-20 15:56] LABS: Phosphorus 6.8 mg/dL (2.4-5.1)
[2023-07-20] MEDS ORDERED: ONDANSETRON HCL 4 MG/2 ML VIAL IV PRN (16:00)
[2023-07-20] MEDS ORDERED: LACTULOSE 20Gm/30ML SOLN PO ONE (16:00)
[2023-07-20] MEDS ORDERED: TEMAZEPAM 15 MG CAP PO PRN (16:00)
[2023-07-20] MEDS ORDERED: DEXTROSE (50%) 50ML SYRG IV PRN (16:00)
[2023-07-20] MEDS ORDERED: MORPHINE SULFATE INJ 2 MG/ml SYRG IV PRN ×2 (16:00)
[2023-07-20] MEDS ORDERED: NITROGLYCERIN 0.4 MG SL TAB SL PRN (16:00)
[2023-07-20] MEDS ORDERED: DOCUSATE SOD 100 MG CAP PO PRN (16:00)
[2023-07-20] MEDS ORDERED: ACETAMINOPHEN 325 MG TAB PO PRN (16:00)
[2023-07-20 16:46] LABS: % Iron Saturation 34.5 % (20-55)
[2023-07-20 16:49] LABS: Folate (Folic Acid) 20.21 ng/mL (>5.38)
[2023-07-20] MEDS ORDERED: ALBUMIN 25% 100 ML IV ONE ×2 (18:00→19:00)
[2023-07-20] MEDS: ACCU-CHEK COMFORT CURVE STRIP VI SCH ×2 (19:00→22:31)
[2023-07-20] MEDS: InsuLIN REG 1unit/0.01ml Soln (100units/ml) SC SCH ×2 (19:00→23:10)
[2023-07-20] MEDS: ALBUTEROL SULF 2.5 MG/0.5ML(0.5%) NEB SOLN NEB SCH ×2 (19:03→23:45)
[2023-07-20] MEDS: IPRATROPIUM BROM 0.5 MG/2.5ML INH SOL NEB SCH ×2 (19:03→23:45)
[2023-07-20] MEDS ORDERED: EPOETIN ALFA-EPBX 10,000 UNIT/1ML VIAL SC ONE (21:00)
[2023-07-20] MEDS: HYDROcodone-ACET 5/325MG TAB PO PRN (21:17)
[2023-07-20] MEDS: SODIUM CHLOR 0.9% PF (SALINE LOCK) 10ML VIAL/SYR IV SCH (22:18)
[2023-07-20 22:31] LABS: Alanine Aminotransferase 11 U/L (7-40); Albumin 5.8 g/dL (3.2-4.8); Alkaline Phosphatase 64 U/L (46-116); Anion Gap 14 (5-15); Aspartate Aminotransferase 11 U/L (13-40); BUN/Creatinine Ratio 5.3 (10.0-20.0); Blood Urea Nitrogen 18 mg/dL (9-23); Calcium 10.3 mg/dL (8.5-10.1); Carbon Dioxide 28 mmol/L (20-30); Chloride 94 mmol/L (98-107); Glucose 166 mg/dL (74-106); Potassium 3.4 mmol/L (3.5-5.1); Sodium 136 mmol/L (136-145)
[2023-07-20] MEDS: methylPREDNISolone SOD SUCC 40 MG/ML VL IV SCH (22:31)
[2023-07-20] MEDS: DOXYCYCLINE 100 MG TAB/CAP PO SCH (22:31)
[2023-07-20 22:32] LABS: Bilirubin, Total 0.4 mg/dL (0.2-1.0); Total Protein 10.6 g/dL (5.7-8.2)
[2023-07-21] VITALS (12 sets, daily range): BP systolic 116–126; BP diastolic 58–79; PULSE 102–111; RESP 16–20; TEMP 97.8–98.8; O2SAT 91–100
[2023-07-21] MEDS ORDERED: ALBUTEROL MEDNEB 2.5 mg/3ml NEB ONE ×3 (05:47→18:15)
[2023-07-21] MEDS: SODIUM CHLOR 0.9% PF (SALINE LOCK) 10ML VIAL/SYR IV SCH ×3 (06:01→21:29)
[2023-07-21] MEDS: methylPREDNISolone SOD SUCC 40 MG/ML VL IV SCH ×3 (06:01→21:36)
[2023-07-21] MEDS: ACCU-CHEK COMFORT CURVE STRIP VI SCH ×4 (06:01→21:29)
[2023-07-21] MEDS: HYDROcodone-ACET 5/325MG TAB PO PRN ×3 (06:04→21:37)
[2023-07-21] MEDS: InsuLIN REG 1unit/0.01ml Soln (100units/ml) SC SCH ×4 (06:11→21:36)
[2023-07-21 06:47] LABS: Chloride 97 mmol/L (98-107); Potassium 4.6 mmol/L (3.5-5.1); Sodium 139 mmol/L (136-145)
[2023-07-21 06:48] LABS: Anion Gap 12 (5-15); Carbon Dioxide 30 mmol/L (20-30)
[2023-07-21 06:49] LABS: Calcium 9.7 mg/dL (8.7-10.4)
[2023-07-21 06:53] LABS: Glucose 167 mg/dL (74-106)
[2023-07-21 06:54] LABS: BUN/Creatinine Ratio 6.4 (10.0-20.0); Blood Urea Nitrogen 31 mg/dL (9-23)
[2023-07-21] MEDS: IPRATROPIUM BROM 0.5 MG/2.5ML INH SOL NEB SCH ×3 (06:58→18:53)
[2023-07-21] MEDS: ALBUTEROL SULF 2.5 MG/0.5ML(0.5%) NEB SOLN NEB SCH ×3 (06:58→18:53)
[2023-07-21 07:04] LABS: Basophils # (auto) 0 10 ^3/uL (0-0.2); Eosinophils # (auto) 0 10 ^3/uL (0-0.8); Eosinophils % (auto) 0.1 % (0.0-7.0); Lymphocytes # (auto) 0.8 10 ^3/uL (0.4-5.4); Mean Corpuscular Hemoglobin 31.3 pg (28.0-32.0); Monocytes # (auto) 1.4 10 ^3/uL (0-1.3); Monocytes % (auto) 15.4 % (0.0-12.0); Neutrophils # (auto) 7.1 10 ^3/uL (1.6-8.6); Nucleated Red Blood Cells % 0.1 %; Red Blood Cells 2.18 10^6/uL (4.5-5.90)
[2023-07-21 07:09] LABS: Basophils % (auto) 0.1 % (0.0-2.0); Hematocrit 20.3 % (41.0-53.0); Lymphocytes % (auto) 8.2 % (10.0-50.0); Mean Corpuscular Hgb Conc. 33.6 g/dL (32.0-36.0); Mean Corpuscular Volume 93.2 fL (80.0-100.0); Neutrophils % (auto) 76.2 % (37.0-80.0); Red Cell Distribution Width 17.4 % (11.8-14.3); White Blood Cell 9.3 10^3/uL (4.4-10.8)
[2023-07-21 07:34] LABS: Hemoglobin 6.8 g/dL (13.5-17.5)
[2023-07-21] MEDS: PANTOPRAZOLE 40 MG TAB PO SCH (11:59)
[2023-07-21] MEDS: SEVELAMER 800 MG TAB PO SCH ×2 (11:59→17:00)
[2023-07-21] MEDS: DOXYCYCLINE 100 MG TAB/CAP PO SCH ×2 (11:59→21:35)
[2023-07-21] MEDS: MAALOX PLUS or MAALOX 30 ML PO PRN (12:04)
[2023-07-21 12:19] LABS: Hemoglobin 7.1 g/dL (13.5-17.5)
[2023-07-21 12:20] LABS: Hematocrit 21.3 % (41.0-53.0)
[2023-07-22] VITALS (19 sets, daily range): BP systolic 118–128; BP diastolic 61–73; PULSE 18–110; RESP 18–94; TEMP 97.7–98.4; O2SAT 90–100
[2023-07-22] MEDS: IPRATROPIUM BROM 0.5 MG/2.5ML INH SOL NEB SCH ×4 (00:14→18:19)
[2023-07-22] MEDS: ALBUTEROL SULF 2.5 MG/0.5ML(0.5%) NEB SOLN NEB SCH ×4 (00:14→18:19)
[2023-07-22] MEDS ORDERED: ALBUTEROL MEDNEB 2.5 mg/3ml NEB ONE ×4 (06:01→23:58)
[2023-07-22] MEDS: ACCU-CHEK COMFORT CURVE STRIP VI SCH ×4 (06:17→21:42)
[2023-07-22] MEDS: SODIUM CHLOR 0.9% PF (SALINE LOCK) 10ML VIAL/SYR IV SCH ×3 (06:17→21:34)
[2023-07-22] MEDS: methylPREDNISolone SOD SUCC 40 MG/ML VL IV SCH ×3 (06:23→21:34)
[2023-07-22] MEDS: InsuLIN REG 1unit/0.01ml Soln (100units/ml) SC SCH ×4 (06:24→22:26)
[2023-07-22] MEDS ORDERED: SODIUM CHL 0.9% 1000 ML BAG XX ONE (07:00)
[2023-07-22] MEDS: HYDROcodone-ACET 5/325MG TAB PO PRN ×2 (09:06→16:41)
[2023-07-22] MEDS: DOXYCYCLINE 100 MG TAB/CAP PO SCH ×2 (09:07→21:35)
[2023-07-22] MEDS: PANTOPRAZOLE 40 MG TAB PO SCH (09:07)
[2023-07-22] MEDS: SEVELAMER 800 MG TAB PO SCH ×3 (09:08→17:48)
[2023-07-22] MEDS ORDERED: ALBUMIN 25% 100 ML IV SCH (11:45)
[2023-07-22] MEDS ORDERED: EPOETIN ALFA-EPBX 10,000 UNIT/1ML VIAL SC ONE (21:00)
[2023-07-23] VITALS (9 sets, daily range): BP systolic 123–124; BP diastolic 73–76; PULSE 87–107; RESP 16–20; TEMP 97.9–98.1; O2SAT 94–100
[2023-07-23] MEDS: ALBUTEROL SULF 2.5 MG/0.5ML(0.5%) NEB SOLN NEB SCH ×3 (00:02→12:38)
[2023-07-23] MEDS: IPRATROPIUM BROM 0.5 MG/2.5ML INH SOL NEB SCH ×3 (00:02→12:38)
[2023-07-23] MEDS: SODIUM CHLOR 0.9% PF (SALINE LOCK) 10ML VIAL/SYR IV SCH ×2 (05:52→14:00)
[2023-07-23] MEDS: ACCU-CHEK COMFORT CURVE STRIP VI SCH ×2 (05:52→10:59)
[2023-07-23] MEDS: methylPREDNISolone SOD SUCC 40 MG/ML VL IV SCH ×2 (05:52→14:00)
[2023-07-23] MEDS: InsuLIN REG 1unit/0.01ml Soln (100units/ml) SC SCH ×3 (05:59→16:44)
[2023-07-23] MEDS ORDERED: ALBUTEROL MEDNEB 2.5 mg/3ml NEB ONE ×2 (06:09→11:23)
[2023-07-23 06:58] LABS: Basophils # (auto) 0 10 ^3/uL (0-0.2); Basophils % (auto) 0.1 % (0.0-2.0); Eosinophils # (auto) 0 10 ^3/uL (0-0.8); Eosinophils % (auto) 0.1 % (0.0-7.0); Hemoglobin 9.5 g/dL (13.5-17.5); Lymphocytes # (auto) 0.5 10 ^3/uL (0.4-5.4); Lymphocytes % (auto) 5.2 % (10.0-50.0); Mean Corpuscular Hgb Conc. 33.8 g/dL (32.0-36.0); Mean Corpuscular Volume 94.8 fL (80.0-100.0); Monocytes # (auto) 0.7 10 ^3/uL (0-1.3); Monocytes % (auto) 7.7 % (0.0-12.0); Neutrophils # (auto) 7.8 10 ^3/uL (1.6-8.6); Neutrophils % (auto) 86.9 % (37.0-80.0); Nucleated Red Blood Cells % 0.1 %; Red Blood Cells 2.95 10^6/uL (4.5-5.90)
[2023-07-23] MEDS: DOXYCYCLINE 100 MG TAB/CAP PO SCH (08:09)
[2023-07-23] MEDS: PANTOPRAZOLE 40 MG TAB PO SCH (08:09)
[2023-07-23] MEDS: SEVELAMER 800 MG TAB PO SCH ×2 (08:09→12:50)
[2023-07-23] MEDS: HYDROcodone-ACET 5/325MG TAB PO PRN (10:19)
[2023-07-23] MEDS ORDERED: DOXY-286 PO (11:12)
[2023-07-23] MEDS: MAALOX PLUS or MAALOX 30 ML PO PRN (12:50)
[2023-07-24] MEDS ORDERED: SODIUM CHL 0.9% 1000 ML BAG XX ONE (07:00)
[2023-07-24] MEDS ORDERED: EPOETIN ALFA-EPBX 10,000 UNIT/1ML VIAL SC ONE (21:00)
== END 2023-07-23 17:20 | disposition home or self-care (01) | DRG 682 ==
LOC: WEST WING 13:21 → TELE-WESTW 16:24
PROVIDERS: ADMIT Internal Medicine; ATTEND Internal Medicine
PROC: 5A1D70Z Performance of Urinary Filtration, Intermittent, Less than 6 Hours Per Day (ICD-10-PCS; principal; 2023-07-20)
PROC: 30233N1 Transfusion of Nonautologous Red Blood Cells into Peripheral Vein, Percutaneous Approach (ICD-10-PCS; 2023-07-20)
PROC: 5A1D70Z Performance of Urinary Filtration, Intermittent, Less than 6 Hours Per Day (ICD-10-PCS; 2023-07-22)
DX: N17.0 Acute kidney failure with tubular necrosis (principal); I50.31 Acute diastolic (congestive) heart failure; J69.0 Pneumonitis due to inhalation of food and vomit; J96.21 Acute and chronic respiratory failure with hypoxia; I13.2 Hypertensive heart and chronic kidney disease with heart failure and with stage 5 chronic kidney disease, or end stage renal disease; C90.00 Multiple myeloma not having achieved remission; E87.5 Hyperkalemia; N18.5 Chronic kidney disease, stage 5; E83.39 Other disorders of phosphorus metabolism; J44.9 Chronic obstructive pulmonary disease, unspecified; D64.9 Anemia, unspecified; E11.22 Type 2 diabetes mellitus with diabetic chronic kidney disease; Z99.81 Dependence on supplemental oxygen; Z82.49 Family history of ischemic heart disease and other diseases of the circulatory system; Z99.2 Dependence on renal dialysis
CPT/HCPCS: 36415; 71045; 76775; 80048; 80053; 82306; 82728; 82746; 82962; 83540; 83550; 83615; 83735; 83880; 83970; 84100; 85014; 85018; 85025; 85045; 86850; 86900; 86901; 86920; 87340; 90935; 94640; G0378; J1642; J1815; P9047